=== PATIENT | female | born 2000 | race Caucasian/White ===

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

== ENCOUNTER 2021-09-13 02:38 | Outpatient (CLI) | payer OTHER, SELFPAY ==
[2021-09-13 11:34] LABS: Kit/Specimen SENT
[2021-09-13 11:47] LABS: Abs Immature Grans 0.06 10^3/uL (0.0-0.06); Absolute Basophil Count 0.06 10^3/uL (0.0-0.2); Absolute Eosinophil Count 0.08 10^3/uL (0.0-0.7); Absolute Lymphocyte Count 2.09 10^3/uL (1.2-3.4); Absolute Monocyte Count 0.62 10^3/uL (0.1-0.8); Basophils % 0.5; Eosinophils % 0.7; HCT 37.6 % (36.0-46.0); HGB 12.4 g/dL (11.2-15.7); Immature Grans % 0.5; Lymphocytes % 18.5; MCH 28.1 pg (27.0-33.0); MCV 85 fL (80-95); MPV 10.6 fL (8.0-11.0); Monocytes % 5.5; Neutrophils % 74.3; Platelet Count 252 10^3/uL (130-400); RBC 4.42 10^6/uL (3.93-5.22); RDW 12.1 % (11.7-14.6); RDW-SD 37.4 fL; WBC 11.31 10^3/uL (4.4-10.8)
[2021-09-14 09:49] LABS: Hepatitis C Ab w Rflx HCV PCR Negative (Negative)
[2021-09-14 10:43] LABS: Hepatitis B Surface Ag Negative (Negative)
[2021-09-14 10:58] LABS: Varicella IgG Antibody Negative (See Note)
[2021-09-14 11:03] LABS: Rubella IgG Ab (UVM) Positive (See Note)
[2021-09-14 11:56] LABS: HIV-1/2 Ag & Ab Screen Negative (Negative)
[2021-09-15 14:10] LABS: Syphilis IgG w/Reflex Nonreactive (Nonreactive)
[2021-09-19 04:10] LABS: Result Summary NEGATIVE; Specimen WB Whole Blood
[2021-09-19 04:42] LABS: Specimen WB Whole Blood
== END 2021-09-13 02:39 | disposition home or self-care (01) ==
LOC: LBO 02:40
PROVIDERS: Advanced Practice Midwife; PCP Nurse Practitioner Family; Visit Provider Advanced Practice Midwife
DX: Z34.91 Encounter for supervision of normal pregnancy, unspecified, first trimester (principal); Z3A.11 11 weeks gestation of pregnancy
CPT/HCPCS: 81329; 86787; 86803; 86850; 86900; 86901; 87340; 87389; 81220; 85025; 86762; 86780

== ENCOUNTER 2021-09-13 19:20 | Outpatient (REF) | payer OTHER, SELFPAY ==
[2021-09-13 12:58] LABS: *AMPHETAMINES SCREEN URINE Negative (Negative); *BARBITURATES SCREEN URINE Negative (Negative); *BENZODIAZEPINES SCREEN URINE Negative (Negative); Cannabinoids THC Negative (Negative); Cocaine Screen,Urine Negative (Negative); METHADONE URINE SCREEN Negative (Negative); OPIATES URINE SCREEN Negative (Negative)
[2021-09-13 13:15] LABS: Tricyclic Antidepressants Negative (Negative)
[2021-09-16 09:25] LABS: Buprenorphine Negative ng/mL (Cutoff: 5.0); Norbuprenorphine Negative ng/mL (Cutoff: 2.5)
[2021-09-16 16:36] LABS: Chlamydia Result Negative (Negative); GC Result Negative (Negative)
== END 2021-09-13 19:21 | disposition home or self-care (01) ==
LOC: LBN 19:20
PROVIDERS: PCP Nurse Practitioner Family; Visit Provider Advanced Practice Midwife
DX: Z34.91 Encounter for supervision of normal pregnancy, unspecified, first trimester (principal); Z3A.11 11 weeks gestation of pregnancy
CPT/HCPCS: 80307; 87491; 87591; 87086

== ENCOUNTER 2021-12-30 01:08 | Outpatient (CLI) | payer OTHER, SELFPAY ==
[2021-12-30 09:52] LABS: HCT 36.9 % (36.0-46.0); HGB 12.2 g/dL (11.2-15.7); MCH 29.9 pg (27.0-33.0); MCHC 33.1 % (32.0-36.0); MCV 90 fL (80-95); MPV 10.1 fL (8.0-11.0); Platelet Count 225 10^3/uL (130-400); RBC 4.08 10^6/uL (3.93-5.22); RDW 12.6 % (11.7-14.6); RDW-SD 41.2 fL; WBC 14.14 10^3/uL (4.4-10.8)
[2021-12-30 10:03] LABS: Glucose,1 Hr (Glucola) 136 mg/dL (80-140)
== END 2021-12-30 01:09 | disposition home or self-care (01) ==
LOC: LBO 01:08
PROVIDERS: Advanced Practice Midwife; PCP Nurse Practitioner Family; Visit Provider Obstetrics & Gynecology
DX: Z34.92 Encounter for supervision of normal pregnancy, unspecified, second trimester (principal); Z3A.26 26 weeks gestation of pregnancy
CPT/HCPCS: 36415; 82950; 85027

== ENCOUNTER → 2022-01-09 02:38 | Outpatient (CLI) | payer OTHER, SELFPAY ==
--- NOTE | 2022-01-09 08:15 | DI.US_ITS ---
Exam(s) US OB SHANE WEIGHT EXAM: US OB SHANE WEIGHT CLINICAL HISTORY: increased risk for trisomy 13, ABNL SCREENING, O28.9. TECHNIQUE: Transabdominal obstetrical ultrasound performed. COMPARISON: No exams were available for comparison FINDINGS: Transabdominal obstetrical ultrasound performed. FINDINGS: Number of fetuses: One. position: Cephalic. Placental location: There is a grade 1 fundal and posterior placenta. No evidence of previa. BIOMETRIC DATA: BPD: 71 mm = 28 weeks 4 days HC: 265 mm = 28 weeks 5 days AC: 245 mm = 28 weeks 6 days FL: 57 mm = 29 weeks 6 days EFW: 1337 grms 69% Composite Age: 29 weeks EDC: 03/27/2022 Heart Rate: 134BPM Amniotic fluid index: 12.3 cm. Visually, amount of fluid is within normal limits. IMPRESSION: 1. Single live intrauterine gestation as above. 2. Estimated weight is 1337gms. This is the 69th percentile. 3. Amniotic fluid index is 12.3 cm. Visually within normal limits. DATA REPOSITORY:
== END ==
PROVIDERS: PCP Nurse Practitioner Family; Visit Provider Obstetrics & Gynecology
DX: Z34.93 Encounter for supervision of normal pregnancy, unspecified, third trimester (principal)
CPT/HCPCS: 76816

== ENCOUNTER 2022-01-26 03:54 | Outpatient (CLI) | payer OTHER, SELFPAY ==
[2022-01-26 10:33] LABS: Glucose 1 Hour 118 mg/dL
[2022-01-26 12:20] LABS: Glucose 3 Hour 95 mg/dL
== END 2022-01-26 03:55 | disposition home or self-care (01) ==
LOC: LBO 03:55
PROVIDERS: PCP Nurse Practitioner Family; Visit Provider Obstetrics & Gynecology
DX: O28.9 Unspecified abnormal findings on antenatal screening of mother (principal)
CPT/HCPCS: 36415; 82951

== ENCOUNTER 2022-02-06 02:04 | Outpatient (CLI) | payer OTHER, SELFPAY ==
--- NOTE | 2022-02-06 07:30 | DI.US_ITS ---
Exam(s) US OB SAHNE WEIGHT EXAM: US OB SHANE WEIGHT CLINICAL HISTORY: increased risk for trisomy 13,abnl finidngs on screening,O28.9. TECHNIQUE: Transabdominal obstetrical ultrasound performed. COMPARISON: US US OB SHANE WEIGHT from 01/09/2022 FINDINGS:: Number of fetuses: One. position: Vertex. Placental location: Posterior. No evidence of previa. BIOMETRIC DATA: BPD: 79mm = 31+5 weeks HC: 295mm = 32+4 weeks AC: 282mm = 32+2 weeks FL: 63 mm = 32+5 weeks EFW: 1961 Gms = 42% Composite Age: 32+2 weeks EDC by ultrasound: 01 April 2022 Heart Rate: 131BPM Amniotic fluid index: 17 cm. Amount of fluid is visually within normal limits. IMPRESSION: size and weight are within the expected range. DATA REPOSITORY:
== END 2022-02-06 02:24 ==
PROVIDERS: PCP Nurse Practitioner Family; Visit Provider Obstetrics & Gynecology
DX: O28.9 Unspecified abnormal findings on antenatal screening of mother (principal)
CPT/HCPCS: 76816

== ENCOUNTER 2022-02-22 06:21 | Outpatient (CLI) | payer OTHER, SELFPAY ==
[2022-02-22 10:08] VITALS: BP 107/59; PULSE 70; TEMP 36.9
[2022-02-22 10:24] VITALS: BP 107/59; PULSE 70
--- NOTE | 2022-05-25 15:56 | W.OBNST ---
Date of service: 02/22/22 Time of Service: 11:00 NST Evaluation Reason for NST Reasons for Nonstress Test: OTHER, SEE COMMENT Reason for NST Other: well being Gestational Age Gestational Age in Weeks and Days: 38 Weeks and 2Days Test and Monitor Explained Test/Monitor Explained: Test Explained, Monitor Explained and Patient Verbalized Understanding Vital Signs Blood Pressure: 107/59 Pulse: 70 Temperature: 98.4 F NST Information Date on Monitor: 02/22/22 Time on Monitor: 10:11 NST Interventions: None NST Evaluation Patient States Movement: Present FHR Baseline: 130 Variability: Moderate 6-25 bpm Accelerations: 15x15 Decelerations: None NST Results: Reactive Note NST Note NST Reviewed and Verified by: Bridgette Bolton
[2022-05-25 15:57] VITALS: BP 107/59; PULSE 70; TEMP 36.9
== END 2022-02-22 11:15 | disposition home or self-care (01) ==
LOC: PRC 06:23 → BCD 06:27 → OBS 10:06
PROVIDERS: PCP Nurse Practitioner Family; Visit Provider Obstetrics & Gynecology Gynecology
DX: Z34.93 Encounter for supervision of normal pregnancy, unspecified, third trimester (principal)
CPT/HCPCS: 59025

== ENCOUNTER 2022-02-24 08:15 | Outpatient (CLI) | payer OTHER, SELFPAY ==
[2022-02-24 10:29] VITALS: BP 104/69; PULSE 72; TEMP 36.5
== END 2022-02-24 10:54 | disposition home or self-care (01) ==
LOC: BCD 08:20 → OBS 10:27
PROVIDERS: PCP Nurse Practitioner Family; Visit Provider Obstetrics & Gynecology Gynecology
DX: Z34.93 Encounter for supervision of normal pregnancy, unspecified, third trimester (principal)
CPT/HCPCS: 59025

== ENCOUNTER 2022-02-28 07:13 | Outpatient (CLI) | payer OTHER, SELFPAY ==
[2022-02-28 10:10] VITALS: BP 112/64; PULSE 68; TEMP 36.8
[2022-02-28 10:34] VITALS: BP 112/64; PULSE 68
--- NOTE | 2022-02-28 11:35 | W.OBNST ---
Date of service: 02/28/22 Time of Service: 11:35 NST Evaluation Reason for NST Reasons for Nonstress Test: OTHER, SEE COMMENT Reason for NST Other: well being Gestational Age Gestational Age in Weeks and Days: 35 Weeks and 3Days Test and Monitor Explained Test/Monitor Explained: Test Explained, Monitor Explained and Patient Verbalized Understanding Vital Signs Blood Pressure: 112/64 Pulse: 68 Temperature: 98.2 F NST Information Date on Monitor: 02/28/22 Time on Monitor: 10:08 NST Interventions: PO Hydration NST Evaluation Patient States Movement: Present FHR Baseline: 135 Variability: Moderate 6-25 bpm Accelerations: 15x15 Decelerations: None NST Results: Reactive Note NST Note Note: Reactive NST, category 1 strip. Follow-up as directed NST Reviewed and Verified by: Lynsey Rodriguez
[2022-02-28 11:36] VITALS: BP 112/64; PULSE 68; TEMP 36.8
--- NOTE | 2022-02-28 16:37 | W.OBNST ---
Date of service: 02/28/22 Time of Service: 14:00 NST Evaluation Reason for NST Reasons for Nonstress Test: OTHER, SEE COMMENT Reason for NST Other: well being Gestational Age Gestational Age in Weeks and Days: 35 Weeks and 3Days Test and Monitor Explained Test/Monitor Explained: Test Explained, Monitor Explained and Patient Verbalized Understanding Vital Signs Blood Pressure: 112/64 Pulse: 68 Temperature: 98.2 F NST Information Date on Monitor: 02/28/22 Time on Monitor: 10:08 NST Interventions: PO Hydration NST Evaluation Patient States Movement: Present FHR Baseline: 135 Variability: Moderate 6-25 bpm Accelerations: 15x15 Decelerations: None NST Results: Reactive Note NST Note NST Reviewed and Verified by: Dorys Cesar
[2022-02-28 16:38] VITALS: BP 112/64; PULSE 68; TEMP 36.8
== END 2022-02-28 11:25 | disposition home or self-care (01) ==
LOC: BCD 07:14 → OBS 10:08
PROVIDERS: PCP Nurse Practitioner Family; Visit Provider Obstetrics & Gynecology
DX: O26.893 Other specified pregnancy related conditions, third trimester (principal); Z3A.35 35 weeks gestation of pregnancy
CPT/HCPCS: 59025

== ENCOUNTER 2022-03-03 07:21 | Outpatient (CLI) | payer OTHER, SELFPAY ==
[2022-03-03 10:10] VITALS: BP 114/70; PULSE 74; TEMP 36.2
--- NOTE | 2022-03-03 11:20 | W.OBNST ---
Date of service: 03/03/22 Time of Service: 10:00 NST Evaluation Reason for NST Reasons for Nonstress Test: OTHER, SEE COMMENT Reason for NST Other: abnormal TS13 Gestational Age Gestational Age in Weeks and Days: 35 Weeks and 6Days Test and Monitor Explained Test/Monitor Explained: Test Explained, Monitor Explained and Patient Verbalized Understanding Vital Signs Blood Pressure: 114/70 Pulse: 74 Temperature: 97.2 F NST Information Date on Monitor: 03/03/22 Time on Monitor: 10:00 NST Interventions: PO Hydration NST Evaluation Patient States Movement: Present FHR Baseline: 130 Variability: Moderate 6-25 bpm Accelerations: 15x15 Decelerations: None NST Results: Reactive Note NST Note Note: RNST. No other concerns. Return next week for growth sono, then NST. NST Reviewed and Verified by: Dorys Cesar
[2022-03-03 11:21] VITALS: BP 114/70; PULSE 74; TEMP 36.2
== END 2022-03-03 10:35 | disposition home or self-care (01) ==
LOC: BCD 07:22 → OBS 10:24
PROVIDERS: PCP Nurse Practitioner Family; Visit Provider Obstetrics & Gynecology
DX: Z3A.35 35 weeks gestation of pregnancy; O35.11X0 Maternal care for (suspected) chromosomal abnormality in fetus, Trisomy 13, not applicable or unspecified
CPT/HCPCS: 59025

== ENCOUNTER → 2022-03-08 02:27 | Outpatient (CLI) | payer OTHER, SELFPAY ==
--- NOTE | 2022-03-08 07:30 | DI.US_ITS ---
Exam(s) US OB SHANE WEIGHT EXAM: US OB SHANE WEIGHT CLINICAL HISTORY: growth and SHANE,o28.9 TECHNIQUE: Ultrasound performed using standard protocol. COMPARISON: No exams were available for comparison FINDINGS: Ob ultrasound was performed utilizing 3rd trimester protocol. biometry is consistent with gest ational age of 35 weeks 4 days and EDC of April 08. The estimated weight is 2899 grams whic h is at the 46th percentile for predicted gestational age. Placenta is posterior with no evidence of placenta previa. There is visually a normal quantity of am niotic fluid and the SHANE is 11. heart rate is 142 BPM. Fetus is in cephalic presentation. Cervical length is 3.8 cm IMPRESSION: DATA REPOSITORY:
== END ==
PROVIDERS: PCP Nurse Practitioner Family; Visit Provider Obstetrics & Gynecology
DX: O28.9 Unspecified abnormal findings on antenatal screening of mother (principal)
CPT/HCPCS: 76816

== ENCOUNTER 2022-03-08 16:22 | Outpatient (REF) | payer OTHER, SELFPAY | END 2022-03-08 16:23 | disposition home or self-care (01) | LOC: LBN 16:22 | PROVIDERS: PCP Nurse Practitioner Family; Visit Provider Obstetrics & Gynecology Gynecology | DX: Z34.03 Encounter for supervision of normal first pregnancy, third trimester (principal) | CPT/HCPCS: 87081 ==

== ENCOUNTER 2022-03-10 09:37 | Outpatient (CLI) | payer OTHER, SELFPAY | END 2022-03-10 09:38 | disposition home or self-care (01) | LOC: BCD 03-21 09:37 | PROVIDERS: PCP Nurse Practitioner Family; Visit Provider Obstetrics & Gynecology | CPT/HCPCS: 59025 ==

== ENCOUNTER 2022-03-10 10:26 | Outpatient (CLI) | payer OTHER, SELFPAY ==
[2022-03-10 10:32] VITALS: BP 117/63; PULSE 74; TEMP 37
[2022-03-10 10:42] VITALS: BP 117/63; PULSE 74
[2022-03-10 11:15] VITALS: BP 117/63; PULSE 74; TEMP 37
--- NOTE | 2022-03-10 11:15 | W.OBNST ---
Date of service: 03/10/22 Time of Service: 11:15 NST Evaluation Reason for NST Reasons for Nonstress Test: OTHER, SEE COMMENT Reason for NST Other: well being Gestational Age Gestational Age in Weeks and Days: 36 Weeks and 6Days Test and Monitor Explained Test/Monitor Explained: Test Explained, Monitor Explained and Patient Verbalized Understanding Vital Signs Blood Pressure: 117/63 Pulse: 74 Temperature: 98.6 F NST Information Date on Monitor: 03/10/22 Time on Monitor: 10:10 Date off Monitor: 03/10/22 Time off Monitor: 10:48 Total Time on Monitor: 38 NST Interventions: PO Hydration NST Evaluation Patient States Movement: Present Variability: Moderate 6-25 bpm Accelerations: 15x15 Decelerations: None NST Results: Reactive Note NST Note Note: Category 1, reactive nonstress test NST Reviewed and Verified by: Lynsey Rodriguez
== END 2022-03-10 10:48 | disposition home or self-care (01) ==
LOC: BCD 10:28 → OBS 10:31
PROVIDERS: PCP Nurse Practitioner Family; Visit Provider Obstetrics & Gynecology
DX: Z34.93 Encounter for supervision of normal pregnancy, unspecified, third trimester (principal); Z3A.36 36 weeks gestation of pregnancy
CPT/HCPCS: 59025

== ENCOUNTER 2022-03-14 07:13 | Outpatient (CLI) | payer OTHER, SELFPAY ==
[2022-03-14 09:59] VITALS: BP 108/74; PULSE 71; TEMP 36.5
[2022-03-14 10:02] VITALS: BP 108/74; PULSE 71
--- NOTE | 2022-03-14 10:29 | W.OBNST ---
Date of service: 03/14/22 Time of Service: 10:29 NST Evaluation Reason for NST Reasons for Nonstress Test: OTHER, SEE COMMENT Reason for NST Other: well being Gestational Age Gestational Age in Weeks and Days: 37 Weeks and 3Days Test and Monitor Explained Test/Monitor Explained: Test Explained and Monitor Explained Vital Signs Blood Pressure: 108/74 Pulse: 71 Temperature: 97.7 F NST Information Date on Monitor: 03/14/22 Time on Monitor: 09:57 Date off Monitor: 03/14/22 Time off Monitor: : Total Time on Monitor: 25 NST Interventions: PO Hydration Contraction Frequency: 2 contractions in 20 min 3 min apart NST Evaluation Patient States Movement: Present FHR Baseline: 135 Variability: Moderate 6-25 bpm Accelerations: 15x15 Decelerations: None NST Results: Reactive Note NST Note Note: Reactive NST, category 1 strip. Occasional uterine contractions. Follow-up as scheduled NST Reviewed and Verified by: Lynsey Rodriguez
[2022-03-14 10:30] VITALS: BP 108/74; PULSE 71; TEMP 36.5
== END 2022-03-14 10:24 | disposition home or self-care (01) ==
LOC: BCD 07:25 → OBS 09:57
PROVIDERS: PCP Nurse Practitioner Family; Visit Provider Obstetrics & Gynecology Gynecology
DX: O26.893 Other specified pregnancy related conditions, third trimester (principal); Z3A.37 37 weeks gestation of pregnancy
CPT/HCPCS: 59025

== ENCOUNTER 2022-03-17 06:06 | Outpatient (CLI) | payer OTHER, SELFPAY ==
[2022-03-17 10:07] VITALS: BP 106/66; TEMP 36.9
[2022-03-17 10:14] VITALS: BP 106/66; PULSE 84
[2022-03-17 10:29] VITALS: BP 106/66; PULSE 84; TEMP 36.9
--- NOTE | 2022-03-19 12:17 | W.OBNST ---
Date of service: 03/19/22 Time of Service: 12:17 NST Evaluation Reason for NST Reasons for Nonstress Test: OTHER, SEE COMMENT Reason for NST Other: elevated Trisomy 13 Gestational Age Gestational Age in Weeks and Days: 37 Weeks and 6Days Test and Monitor Explained Test/Monitor Explained: Test Explained, Monitor Explained and Patient Verbalized Understanding Vital Signs Blood Pressure: 106/66 Pulse: 84 Temperature: 98.4 F Urine Results Urine Protein: Negative Urine Ketones: Negative Urine Glucose: Negative Urine Blood: Negative NST Information Date on Monitor: 03/17/22 Time on Monitor: 10: Date off Monitor: 03/17/22 Time off Monitor: : Total Time on Monitor: 20 NST Interventions: PO Hydration Contraction Frequency: Q8 NST Evaluation Patient States Movement: Present FHR Baseline: 125 Variability: Moderate 6-25 bpm Accelerations: 15x15 Decelerations: None NST Results: Reactive Note NST Note Note: Discussed IOL after 39w with pt and partner. Plan on admission for cervical ripening 03/27/22 and Oxytocin augmentation on 03/28/22. NST Reviewed and Verified by: Bridgette Bolton
[2022-03-19 12:18] VITALS: BP 106/66; PULSE 84; TEMP 36.9
== END 2022-03-17 11:04 | disposition home or self-care (01) ==
LOC: BCD 06:08 → OBS 09:53
PROVIDERS: PCP Nurse Practitioner Family; Visit Provider Advanced Practice Midwife
DX: O35.11X0 Maternal care for (suspected) chromosomal abnormality in fetus, Trisomy 13, not applicable or unspecified (principal); Z3A.37 37 weeks gestation of pregnancy
CPT/HCPCS: 59025

== ENCOUNTER 2022-03-19 22:37 | Outpatient (CLI) | payer OTHER, SELFPAY ==
[2022-03-19 23:23] VITALS: BP 116/80; PULSE 80; TEMP 36.9
[2022-05-25 16:03] VITALS: BP 116/80; PULSE 80; TEMP 36.9
--- NOTE | 2022-05-25 16:03 | W.OBNST ---
Date of service: 03/19/22 Time of Service: 14:34 NST Evaluation Reason for NST Reasons for Nonstress Test: FALSE LABOR Gestational Age Gestational Age in Weeks and Days: 38 Weeks and 2Days Test and Monitor Explained Test/Monitor Explained: Test Explained, Monitor Explained and Patient Verbalized Understanding Vital Signs Blood Pressure: 116/80 Pulse: 80 Temperature: 98.4 F NST Information Time on Monitor: 22:47 Date off Monitor: 03/20/22 Time off Monitor: 00:00 NST Interventions: None NST Evaluation Patient States Movement: Present FHR Baseline: 130 Variability: Moderate 6-25 bpm Accelerations: 15x15 Decelerations: None NST Results: Reactive
== END 2022-03-19 23:59 | disposition home or self-care (01) ==
LOC: BCD 22:38
PROVIDERS: PCP Nurse Practitioner Family; Visit Provider Obstetrics & Gynecology Gynecology
DX: Z34.93 Encounter for supervision of normal pregnancy, unspecified, third trimester (principal)
CPT/HCPCS: 59025

== ENCOUNTER 2022-03-20 21:51 | Inpatient (IN) | payer OTHER, SELFPAY ==
[2022-03-20] VITALS (9 sets, daily range): BP systolic 124–129; BP diastolic 85; PULSE 67–95; RESP 19–25; TEMP 20–37.1; O2SAT 95–96
--- NOTE | 2022-03-20 18:36 | NUR.NOTE ---
RN unable to chart on NST worklist due to Ahonya stating provider is still in screen, provider en route to home and not near computer. FHR Baseline 120, moderate variability, 15X15 accelerations present, no decelerations, contractions every 3-5min lasting 70-100 seconds, resting tone relaxed in between contractions. Intensity of contractions palpating mild/moderate Nursing Note:
--- NOTE | 2022-03-20 19:55 | NUR.NOTE ---
Plan of care reviewed with patient. Karen appears more comfortable after her shower/water therapy. Pt states she feels much better now and wonders why our shower gave her much more relief than her home shower. Pt was transferred to room 300 for tub room access. Karen is currently rocking on the birthing ball with her contractions. We plan to hold the morphine until her contractions are unbearable. She appears in much more control of her labor currently.Nursing Note:
[2022-03-20] MEDS: MORPHine 2 MG/ML SYR IM (22:17)
[2022-03-20] MEDS: Ondansetron 4 MG/2 ML VIAL IM (22:18)
[2022-03-20 22:19] LABS: HCT 41.4 % (36.0-46.0); HGB 13.8 g/dL (11.2-15.7); MCH 29.6 pg (27.0-33.0); MCHC 33.3 % (32.0-36.0); MCV 89 fL (80-95); MPV 11.4 fL (8.0-11.0); Platelet Count 200 10^3/uL (130-400); RBC 4.67 10^6/uL (3.93-5.22); RDW 11.4 % (11.7-14.6); RDW-SD 36.6 fL; WBC 16.58 10^3/uL (4.4-10.8)
--- NOTE | 2022-03-20 23:50 | NUR.NOTE ---
sitting in tub with Nitrous available. Occ crying out during contraction. Considering returning to shower with birthing ball. Appears to be coping Ok in the tub. Hsb supportiveNursing Note:
[2022-03-21] VITALS (96 sets, daily range): BP systolic 93–137; BP diastolic 51–85; PULSE 55–114; RESP 15–18; TEMP 20–37.3; O2SAT 87–100; BMI 33.6
--- NOTE | 2022-03-21 00:02 | NUR.NOTE ---
Out of tub, and to shower after voiding.Nursing Note:
--- NOTE | 2022-03-21 00:31 | NUR.NOTE ---
Karen in fbi profiler on shower chair listening to her music. Coping well with most of the contractions. Feels shower is better at this time.Nursing Note:
[2022-03-21] MEDS: Lactated Ringers 500 ML IV (02:27)
--- NOTE | 2022-03-21 02:29 | HPE_ITS ---
Date of service: 03/21/22 Time of Service: 02:30 Assessment and Plan Assessment and plan (1) : Status: Acute Assessment and plan: Spontaneous labor with routine care. Desires epidural. Anesthesia aware. OB-HPI Labor/Delivery History of Present Illness Reason for Visit: Labor Chief Complaint: Uterine Contractions. DEANGELO Calculator Estimated Delivery Date Method Current WG Current Estimate 04/01/22 LMP (Certain) 38w 3d Other Estimates 03/30/22 Ultrasound #1 38w 5d History of Present Expected Delivery Route/Plan - MDs FOB/ - Brock (first baby together). Varicella non-immune, offer vaccination Specific Issues/Plan 1. Panorama HR trisomy 13. 68% risk.. CF/SMA negative - [facility] level 2 sono at 20wks wnl = significant reduction in risk for T13 - Recommend growth u/s at [facility] at 28, 32 and 36wks. Begin NSTs at 34w 2. Varicella Non-Immune, counseled pt, offer vaccine 3. Received covid vaccine x 2, no booster. Narrative: Pt has had intermittent contractions for over 24hrs. She came in last evening with more regular ctxs and has slowly progress in labor. No ROM. Good FM. Review of Systems Constitutional Constitutional: Reports system reviewed and no additional complaints, except as documented Gastrointestinal Gastrointestinal: Denies nausea and Denies vomiting Genitourinary Genitourinary: Reports system reviewed and no additional complaints, except as documented Musculoskeletal Comments: No regular contractions PFSH All Active Problems (Acute) Susceptible to varicella (non-immune), currently (Acute) Abnormal finding on screening of mother (Acute) Medical History Missed menses Surgical History [place] teeth extracted Family History (Updated 09/13/21 @ 10:29 by Yakelin Gonzales CNM) Paternal Grandfather Heart disease Mother Hx of cardiac arrhythmia Social History Smoking/Tobacco Use Status: Never Smoking risk assessment performed?: Yes Alcohol Intake: never Drug use: Never Substance use type: does not use Do you feel safe at home: Yes Do you feel safe in your relationship?: Yes History History 1 Para 0 Hx # Term Pregnancies 0 Multiple births 0 Hx # Pregnancies 0 Ectopic pregnancies 0 AB induced 0 Hx Number of Living Children 0 AB spontaneous 0 Meds Allergies and Home Medications Allergies Allergy/AdvReac Type Severity Reaction Status Date / Time No Known Allergies Allergy Unverified 03/08/22 13:00 Home Medications Medication Instructions Recorded Confirmed Type vitamins with calcium 1 tab PO DAILY #90 tabs 08/12/21 03/19/22 Rx no.72-iron 29 mg-folic acid 1 mg tablet ( Plus) pyridoxine (vitamin B6) 25 mg 25 mg PO DAILY 09/13/21 03/19/22 History tablet ondansetron HCl 8 mg tablet 8 mg PO Q8H PRN nausea and 10/11/21 03/19/22 Rx vomiting #14 tabs Exam Physical Exam Vital signs: Temp Pulse Resp BP Pulse Ox 98.8 F 65 17 129/85 96 03/21/22 01:17 03/21/22 02:26 03/21/22 01:17 03/20/22 22:24 03/21/22 02:26 Vital Signs Reviewed: Yes Detailed Labor and Delivery Exam Dilation: 5 (by RN) Effacement (%): 85 station: -1 Bowser Score: Cervical Points Exam 0 1 2 3 Dilation Closed 1-2cm 3-4 cm 5-6cm Effacement 0-30% 40-50% 60-70% 80% Consistency Firm Medium Soft Station -3 -2 -1,0 +1,+2 Position Posterior Mid Anterior Amniotic Membrane Status: Intact Fetus A Heart Rate Baseline: 120 Monitor Accelerations: 15 X 15 Monitor Decelerations: None Variability: Moderate (6-25 BPM) Categories: Category I Detailed HEENT Exam Head: Present normocephalic and atraumatic Detailed Abdominal Exam Comments: gravid, nontender Detailed Neurological Exam Neurological: Present alert, oriented X3 and CN II-XII intact DetailedPsychiatric Exam Psychiatric: Present normal affect, normal thought process and cooperative Results Abnormal Lab Findings: Abnormal Labs 03/20/22 22:08 WBC 16.58 H RDW 11.4 L MPV 11.4 H Risk Assessment Risk for Shoulder Dystocia Historical/Initial OB: NEGATIVE FOR: Pelvic Abnormality, Pre- BMI>30, Previous Shoulder Dystocia or Previous Macrosomia Risk for Pre-Eclampsia Yes, if one or more: NEGATIVE FOR: Hx Pre-E/Gest HTN, Chronic HTN, Multiple Gestation, Pre-gestational DM, Renal Disease, Systemic Lupus or APA Syndrome Yes, if 2 or more: POSITIVE FOR: Nulliparity; NEGATIVE FOR: Age>= 35 yrs, >10yr btwn pregnancies, BMI>30, ethinicty, Mother/Sister w/ Pre-E or Previous IUGR Risk for Post- Hemorrhage Initial: NEGATIVE FOR: Multiple Gestation, Previous PPH, Known Clotting Deficiency, Grand Multiparity or Anticoagulation Risks Reviewed Risks Reviewed Upon Admission: Yes
--- NOTE | 2022-03-21 02:53 | W.OBNST ---
Date of service: 03/20/22 Time of Service: 19:00 NST Evaluation Reason for NST Reasons for Nonstress Test: FALSE LABOR Gestational Age Gestational Age in Weeks and Days: 38 Weeks and 2Days Test and Monitor Explained Test/Monitor Explained: Test Explained, Monitor Explained, Patient Verbalized Understanding and Other Vital Signs Blood Pressure: 124/85 Pulse: 95 Temperature: 68 F NST Information Date on Monitor: 03/20/22 Time on Monitor: 17:45 Date off Monitor: 03/20/22 Time off Monitor: 18:08 Total Time on Monitor: 23 NST Interventions: None NST Evaluation Patient States Movement: Present FHR Baseline: 125 Variability: Moderate 6-25 bpm Accelerations: 15x15 Decelerations: None NST Results: Reactive Note NST Note NST Reviewed and Verified by: Dorys Cesar
[2022-03-21 02:58] LABS: Source Nasal/Nares
--- NOTE | 2022-03-21 03:08 | W.ANESPRE ---
General Info Date of Service Date Performed: 03/21/22 Height: 5 ft 3 in Weight: 86.183 kg Body Mass Index (BMI): 33.6 Meds Allergies and Home Medications Allergies Allergy/AdvReac Type Severity Reaction Status Date / Time No Known Allergies Allergy Unverified 03/08/22 13:00 Home Medication Medication Instructions Recorded vitamins with calcium 1 tab PO DAILY #90 tabs 08/12/21 no.72-iron 29 mg-folic acid 1 mg tablet ( Plus) pyridoxine (vitamin B6) 25 mg 25 mg PO DAILY 09/13/21 tablet ondansetron HCl 8 mg tablet 8 mg PO Q8H PRN nausea and 10/11/21 vomiting #14 tabs Current Visit Medications: Current Medications Generic Name Dose Route Start Last Admin Trade Name Freq PRN Reason Stop Dose Admin Sodium Chloride 500 mls @ 0 mls/hr 03/20/22 21:51 Saline 500ml Bag IV PRN PRN As Directed Ringer's Solution 1,000 mls @ 125 mls/hr 03/21/22 02:00 IV INFUSION NATHANAEL IV Miscellaneous Supplies 1 each 03/20/22 22:00 03/21/22 02:26 Iv Access IV 1 each DIRECTED NATHANAEL Administration Morphine Sulfate 2 mg 03/20/22 17:59 03/20/22 22:17 Morphine 2 Mg/Ml Syr IM 2 mg Q2H PRN PRN Administration Ondansetron HCl 4 mg 03/20/22 19:29 03/20/22 22:18 Ondansetron 4 Mg/2 Ml Vial IM 4 mg Q6H PRN PRN Administration Nausea Sodium Chloride 0 ml 03/20/22 21:51 Normal Saline Flush 10 Ml Syr IVP PRN PRN PFSH Active Problems Active Problems: Problem Status Onset Code Z34.90 Susceptible to varicella (non-immune), currently O09.899, Z28.39 Abnormal finding on screening of mother O28.9 Medical History Medical History Missed menses Surgical History Surgical History [place] teeth extracted Tobacco Smoking/Tobacco Use Status: Never Alcohol Alcohol Intake: never Substance Use Substance use: Never Substance use type: does not use Prental History History 1 Para 0 Hx # Term Pregnancies 0 Multiple births 0 Hx # Pregnancies 0 Ectopic pregnancies 0 AB induced 0 Hx Number of Living Children 0 AB spontaneous 0 Vital Signs and Lab Results Vital Signs Most Recent Vital Signs in EMR: Most Recent Vital Signs Temp Pulse Resp BP Pulse Ox 37.2 C 71 17 129/85 96 03/21/22 02:29 03/21/22 03:06 03/21/22 01:17 03/20/22 22:24 03/21/22 03:06 Lab Results Result Diagrams: 03/20/22 22:08 Blood Type / Crossmatch: Patient ABO/Rh O Positive 03/20/22 Antibody Screen NEGATIVE 03/20/22 Complete Blood Count: White Blood Count 16.58 10^3/uL (4.4-10.8) H 03/20/22 22:08 Red Blood Count 4.67 10^6/uL (3.93-5.22) 03/20/22 22:08 Hemoglobin 13.8 g/dL (11.2-15.7) 03/20/22 22:08 Hematocrit 41.4 % (36.0-46.0) 03/20/22 22:08 Platelet Count 200 10^3/uL (130-400) 03/20/22 22:08 Complete Metabolic Panel: No Data to Display Liver Function Panel: No Data to Display Coagulation Panel: No Data to Display Cardiac Panel: No Data to Display Arterial Blood Gas: No Data to Display Venous Blood Gas: No Data to Display Pancreas Panel: No Data to Display Thyroid Panel: No Data to Display Infectious Disease: Coronavirus (COVID-19)(PCR) Negative (Negative) 03/21/22 02:55 Coronavirus 2019 Source Nasal/Nares 03/21/22 02:55 Blood Cultures: No Data to Display Toxicology Panel: No Data to Display Panel: No Data to Display Anesthesia Assessment and Plan Anesthesia History Personal History: No History of Anesthesia Complications Family History: No Family History of Anesthesia Complications Exercise Tolerance Exercise Tolerance: Metabolic Equivalents>4 Pertinent Negatives Pertinent Negatives: No Major Cardiovascular Symptoms or Complaints and No Major Pulmonary Symptoms or Complaints Cardiac & Pulmonary Exam Cardiac Exam: Normal S1/S2 Heart Sounds Pulmonary Exam: Clear Bilateral Breath Sounds Implantable Cardiac Device Does patient have a Pacemaker or an ICD?: No Airway Exam Known Difficult Airway: No Mallampati Class: 1 Mouth Opening: Normal (> 3cm) Thyromental Distance: Greater than 3 cm Neck Range of Motion: Full ROM Neck Circumference: Normal Teeth Condition: Normal Dentition ASA Classification ASA Score: ASA 1 Emergency Case?: No NPO Status NPO Status: Full Stomach Status Status: Confirmed Anesthesia Plan Resuscitation Status: Full Code Anesthesia Technique: Spinal Anesthesia Airway Planned: Natural Airway Monitors Used: Standard Monitors Preoperative Comments:: Labor epidural
[2022-03-21 03:28] LABS: COVID-19 PCR Negative (Negative)
--- NOTE | 2022-03-21 03:56 | ANES.NEUR_ITS ---
Epidural/Spinal Catheter Date Performed: 03/21/22 Procedure Start: 03:30 Procedure Stop: 04:11 Requesting Provider: Dorys Cesar Procedure Location: Obstetrics Reason Performed: Labor Epidural Standard Monitors Applied: Blood Pressure, SpO2 and See EMR for corresponding vital signs Patient Position: Sitting Sedation Given (Indicate Dose Given): No Sedation given Patient Mental Status: Awake Sterility: Hand Hygiene, Surgical Cap, Surgical Mask, Sterile Gloves, Sterile Drape/Sheet and Chlorhexidine Procedure Location: L2-L3 Interspace Epidural Needle: Tuohy 18 Gauge Needle Length: 3.5 Inch Needle Approach: Midline Epidural Procedure: Skin Prepped, Sterile Drape Placed, 1% Lidocaine to skin and subcutaneous tissue with 25G needle, Tuohy Needle placed, EDELMIRA to Saline Used, Epidural Catheter Placed, Negative CSF Flow and Tuohy Needle Removed Catheter Placed?: Catheter Placed Test Dose (Indicate Dose Given): 3ml 1.5% Lidocaine with 1:200K Epinephrine Given and Negative Test Dose Loss of Resistance Depth (cm): 6 Catheter depth at skin (cm): 12 Dressing: Sorbaview Dressing Placed and Dressing reinforced with Tape Epidural Provider Bolus (Indicate Dose Given): Total bolus dose given in 3-5 ml divided doses and Total Ropivacaine 0.1% with Fentanyl 2mcg/ml Given from pump. (ml) Dose:: 5 ml Additives (Indicate Dose Given ): None Infusion Medication: Medication Infusion Began Medication Infusion: Ropivacaine 0.1% with Fentanyl 2mcg/ml Maintenance Infusion Rate (ml/hour): 10 PCEA Bolus Dose (ml): 5 Block Level: N/A Paresthesia: None Ultrasound: Not Used Number of Attempts (See previous attempts in note section): 1 Procedure Tolerated: No Complications and Patient tolerated well Procedure Outcome: Successful Procedure Comment:: Negative test dose at 0347. Catheter placed and withdrew to 12cm. Initially appreciated some heme in catheter but not constant on withdrawal. Catheter flushed and heme not reproducible. Catheter dressed and infusion began. IV noted to be infiltrated and new one placed. Bolus 5ml from pump with complete relief of contraction discomfort. Legs motor strength 5/5, had some initial right foot tingling only which resolved when she turned on her side. Pt. states no dis comfort now. RN will monitor for epidural vs intrathecal placement given how much relief in short amount fo time with a small dose of medication, however given motor/sensory exam as well as negative test dose, all is reassuring that placement is in epidural space. Pt. educated on PCEA use. Performed By: Efrain Salazar
[2022-03-21] MEDS: FentaNYL/ROPIvacaine 2 mcg/ml and 0.1% 200 ML CADD Cassette EP (04:11)
--- NOTE | 2022-03-21 06:14 | PGE_ITS ---
Date of service: 03/21/22 Time of Service: 06:14 Pelvic Exam Dilation: 6 Effacement (%): 90 station: -1 Vaginal Exam Presentation: Cephalic Contractions Monitor Mode: External Fetus A Heart Rate Baseline: 130 Variability: Moderate (6-25 BPM) Categories: Category I Accelerations: 15 X 15 Decelerations: None Amniotic Membrane Status: Ruptured Rupture Method: Artifical Amniotic Fluid: Clear and [place] Tinged Date of Membrane Rupture: 03/21/22 Time of Membrane Rupture: 06:10 Assessment and Plan Assessment and plan (1) with 38 completed weeks gestation: Status: Acute Assessment and plan: Continue expectant management. Recheck in several hours. Consider pitocin augmentation if minimal cervical change. Objective Abnormal lab results 03/20/22 Range/Units 22:08 WBC 16.58 H (4.4-10.8) 10^3/uL RDW 11.4 L (11.7-14.6) % MPV 11.4 H (8.0-11.0) fL Temp Pulse Resp BP Pulse Ox 99.0 F 65 15 93/55 L 100 03/21/22 02:29 03/21/22 06:12 03/21/22 04:44 03/21/22 06:12 03/21/22 03:46 Laboratory Results WBC 16.58 10^3/uL (4.4-10.8) H 03/20/22 22:08 RBC 4.67 10^6/uL (3.93-5.22) 03/20/22 22:08 Hgb 13.8 g/dL (11.2-15.7) 03/20/22 22:08 Hct 41.4 % (36.0-46.0) 03/20/22 22:08 MCV 89 fL (80-95) 03/20/22 22:08 MCH 29.6 pg (27.0-33.0) 03/20/22 22:08 MCHC 33.3 % (32.0-36.0) 03/20/22 22:08 RDW 11.4 % (11.7-14.6) L 03/20/22 22:08 Plt Count 200 10^3/uL (130-400) 03/20/22 22:08 MPV 11.4 fL (8.0-11.0) H 03/20/22 22:08 COVID-19 Source Nasal/Nares 03/21/22 02:55 SARS-CoV-2 (PCR) Negative (Negative) 03/21/22 02:55 Patient ABO/Rh O Positive 03/20/22 22:08 Antibody Screen NEGATIVE 03/20/22 22:08 Subjective Interval history since last seen: Karen is now comfortable with an epidural and got a good nap. Ctx q4-5min. Results Hemoglobin/Hematocrit: Hgb 13.8 g/dL (11.2-15.7) 03/20/22 22:08 Hct 41.4 % (36.0-46.0) 03/20/22 22:08 Abnormal Lab Findings: Abnormal Labs 03/20/22 22:08 WBC 16.58 H RDW 11.4 L MPV 11.4 H
[2022-03-21] MEDS: Lactated Ringers 1,000 ML 125 ML IV (07:00)
--- NOTE | 2022-03-21 08:49 | W.PM.OBNL1 ---
Date of service: 03/21/22 Time of Service: 08:49 Pelvic Exam Dilation: 6 Effacement (%): 100 station: 0 Position: OA Cervix Position: mid Vaginal Exam Presentation: Cephalic Contractions Monitor Mode: External Contraction Frequency(min): q2-3min Contraction Duration(sec): 50 Intensity: Moderate Fetus A Monitor: External (US) Heart Rate Baseline: 130 Presentation: Cephalic Variability: Moderate (6-25 BPM) Categories: Category I FHR Rhythm: Regular Characteristics: Normal Accelerations: 15 X 15 Decelerations: None Amniotic Membrane Status: Ruptured Assessment Note: significant descent of presenting part Assessment and Plan Assessment and plan (1) Uterine contractions: Status: Acute Assessment and plan: Pt comfortable with epidural. Continue present management. Objective Abnormal lab results 03/20/22 Range/Units 22:08 WBC 16.58 H (4.4-10.8) 10^3/uL RDW 11.4 L (11.7-14.6) % MPV 11.4 H (8.0-11.0) fL Temp Pulse Resp BP Pulse Ox 98.3 F 89 17 111/65 97 03/21/22 07:28 03/21/22 08:41 03/21/22 07:38 03/21/22 08:41 03/21/22 08:24 Laboratory Results WBC 16.58 10^3/uL (4.4-10.8) H 03/20/22 22:08 RBC 4.67 10^6/uL (3.93-5.22) 03/20/22 22:08 Hgb 13.8 g/dL (11.2-15.7) 03/20/22 22:08 Hct 41.4 % (36.0-46.0) 03/20/22 22:08 MCV 89 fL (80-95) 03/20/22 22:08 MCH 29.6 pg (27.0-33.0) 03/20/22 22:08 MCHC 33.3 % (32.0-36.0) 03/20/22 22:08 RDW 11.4 % (11.7-14.6) L 03/20/22 22:08 Plt Count 200 10^3/uL (130-400) 03/20/22 22:08 MPV 11.4 fL (8.0-11.0) H 03/20/22 22:08 COVID-19 Source Nasal/Nares 03/21/22 02:55 SARS-CoV-2 (PCR) Negative (Negative) 03/21/22 02:55 Patient ABO/Rh O Positive 03/20/22 22:08 Antibody Screen NEGATIVE 03/20/22 22:08 Vital Signs Reviewed: Yes Objective Narrative Objective Narrative: comfortable with epidural in place. Interventions Other (none) Results Hemoglobin/Hematocrit: Hgb 13.8 g/dL (11.2-15.7) 03/20/22 22:08 Hct 41.4 % (36.0-46.0) 03/20/22 22:08 Abnormal Lab Findings: Abnormal Labs 03/20/22 22:08 WBC 16.58 H RDW 11.4 L MPV 11.4 H
--- NOTE | 2022-03-21 10:26 | W.PM.OBNL1 ---
Date of service: 03/21/22 Time of Service: 10:26 Pelvic Exam Dilation: 8 Effacement (%): 100 station: 0 Position: OA Cervix Position: mid Comments: Exam by RN. Pt feeling more rectal pressure. Continues comfortable with epidural in place. Contractions Monitor Mode: External Contraction Frequency(min): q2-3 Contraction Duration(sec): 50 Intensity: Moderate Fetus A Monitor: External (US) Heart Rate Baseline: 125 Presentation: Cephalic Variability: Moderate (6-25 BPM) Categories: Category I FHR Rhythm: Regular Characteristics: Normal Accelerations: 15 X 15 Decelerations: None Assessment and Plan Assessment and plan (1) Uterine contractions: Status: Acute Assessment and plan: Satisfactory labor progress. Continue current management. Objective Abnormal lab results 03/20/22 Range/Units 22:08 WBC 16.58 H (4.4-10.8) 10^3/uL RDW 11.4 L (11.7-14.6) % MPV 11.4 H (8.0-11.0) fL Temp Pulse Resp BP Pulse Ox 97.5 F L 83 17 118/70 96 03/21/22 09:42 03/21/22 10:11 03/21/22 09:42 03/21/22 10:11 03/21/22 08:35 Laboratory Results WBC 16.58 10^3/uL (4.4-10.8) H 03/20/22 22:08 RBC 4.67 10^6/uL (3.93-5.22) 03/20/22 22:08 Hgb 13.8 g/dL (11.2-15.7) 03/20/22 22:08 Hct 41.4 % (36.0-46.0) 03/20/22 22:08 MCV 89 fL (80-95) 03/20/22 22:08 MCH 29.6 pg (27.0-33.0) 03/20/22 22:08 MCHC 33.3 % (32.0-36.0) 03/20/22 22:08 RDW 11.4 % (11.7-14.6) L 03/20/22 22:08 Plt Count 200 10^3/uL (130-400) 03/20/22 22:08 MPV 11.4 fL (8.0-11.0) H 03/20/22 22:08 COVID-19 Source Nasal/Nares 03/21/22 02:55 SARS-CoV-2 (PCR) Negative (Negative) 03/21/22 02:55 Patient ABO/Rh O Positive 03/20/22 22:08 Antibody Screen NEGATIVE 03/20/22 22:08 Results Hemoglobin/Hematocrit: Hgb 13.8 g/dL (11.2-15.7) 03/20/22 22:08 Hct 41.4 % (36.0-46.0) 03/20/22 22:08 Abnormal Lab Findings: Abnormal Labs 03/20/22 22:08 WBC 16.58 H RDW 11.4 L MPV 11.4 H
[2022-03-21] MEDS: Oxytocin 10 UNITS/ML VIAL IM (12:15)
[2022-03-21] MEDS: Lidocaine 1% Multi-Dose 20 ML VIAL IJ (12:15)
--- NOTE | 2022-03-21 14:50 | W.ANESPOSTOP ---
Postoperative Evaluation Date, Time and Location Date Performed: 03/21/22 Time Performed: 14:51 Patient Location: Day Surgery Unit Vital Signs Most Recent Imported Vital Signs: Most Recent Vital Signs Temp Pulse Resp BP Pulse Ox 36.4 C L 67 17 106/55 L 96 03/21/22 09:42 03/21/22 13:56 03/21/22 09:42 03/21/22 13:56 03/21/22 08:35 Pain Score Most Recent Pain Score: Most Recent Pain Score Pain Level [Lower Abdomen] 0 03/21/22 09:42 Pain Level 6 03/20/22 23:17 Assessment Mental Status: Awake (Alert & Oriented to Patient Baseline) Airway and Respiratory Function: Patent airway with normal (patient baseline) respiratory exam Cardiovascular Function: Hemodynamically Stable Hydration Status: Adequately Hydrated Nausea & Vomiting: No Nausea or Vomiting Pain: Pt. Denies Any Pain Peripheral Nerve Block: Other (Epidural appropriately resolved, denied complaint, denied headache, denied backpain. Per RN catheter removed with tip intact.)
[2022-03-21] MEDS: Ibuprofen 600 MG TAB PO (16:13)
[2022-03-21] MEDS: Docusate Sodium 100 MG CAP PO (16:13)
[2022-03-21] MEDS: Hamamelis Leaf/Glycerin 100 EACH BOX PR (16:13)
[2022-03-21] MEDS: Dibucaine 1% 28 GM TUBE TP (16:13)
[2022-03-21] MEDS: Acetaminophen 325 MG TAB 650 MG PO ×2 (16:14→21:06)
--- NOTE | 2022-03-21 19:27 | NUR.NOTE ---
Patient asleep. Hsb requesting to have vitals and assessment occur in an hour.Nursing Note:
[2022-03-22] MEDS: Ibuprofen 600 MG TAB PO ×2 (01:29→10:36)
--- NOTE | 2022-03-22 07:43 | W.PM.OBPNV1 ---
Date of service: 03/22/22 Time of Service: 07:43 Assessment and Plan Assessment and plan (1) Normal spontaneous vaginal delivery: Status: Acute Assessment and plan: day #1 status postnormal spontaneous vaginal delivery. Doing well. Anticipate discharge home later today, or tomorrow. Continue breast-feeding. Routine follow-up in 2 and 6 weeks. Subjective Subjective Interval history: Patient seen and examined this morning. Doing well. Breast-feeding is coming along appropriately. Sleeping well. Patient's Mood: Good baby status: Doing well and Nursing well feeding status: Exclusively breast feeding Exam Physical Exam Vital signs: Temp Pulse Resp BP Pulse Ox 98.2 F 74 17 114/74 96 03/21/22 20:10 03/21/22 20:10 03/21/22 20:10 03/21/22 20:10 03/21/22 08:35 Vital Signs Reviewed: Yes Constitutional Constitutional: no acute distress Neck Exam Neck Exam: Normal Respiratory Exam Respiratory Exam: Normal Cardiovascular Exam Cardiovascular Exam: Normal Abdominal Exam Abdomen: Diastasis Fundal Exam Fundus: Below Umbilicus and Firm Extremities Exam Extremity Exam: Normal; negative Calf Tenderness Psychiatric Exam Psychiatric Exam: Normal Results Hemoglobin/Hematocrit: Hgb 13.8 g/dL (11.2-15.7) 03/20/22 22:08 Hct 41.4 % (36.0-46.0) 03/20/22 22:08 Abnormal Lab Findings: Abnormal Labs 03/20/22 22:08 WBC 16.58 H RDW 11.4 L MPV 11.4 H
--- NOTE | 2022-03-22 07:49 | DSE_ITS ---
Date of service: 03/22/22 Time of Service: 07:50 DS: Diagnosis Discharge Diagnosis (1) Normal spontaneous vaginal delivery: Status: Acute Asessment and Plan: day 1 status postnormal spontaneous vaginal delivery viable female Natalie. Breast-feeding without difficulty. Follow-up in the office in 2 and 6 weeks. All questions answered. Discharge Plan Disposition Patient Disposition: HOME Condition: Good Discharge Details Reason For Visit: Labor Admit Date/Time: 03/20/22 21:51 Admit Provider: Dorys Cesar Attending Provider: Dorys Cesar Primary Care Provider: Mckayla Valera [facility] Course Hospital Course: Patient presented in early active labor, had an uncomplicated labor course. She received epidural for pain control. She went on to deliver by normal spontaneous vaginal delivery of viable female infant. She an uncomplicated p ostpartum course. Discharged home day #1. Female infant, Natalie. Home Meds and New Rx's Prescriptions: New ibuprofen [IBU] 600 mg tablet 600 mg PO Q8H PRNQty: 30 1RF Continued Plus 29 mg iron- 1 mg tablet 1 tab PO DAILY Qty: 90 5RF pyridoxine (vitamin B6) 25 mg tablet 25 mg PO DAILY Discontinued ondansetron HCl 8 mg tablet 8 mg PO Q8H PRN (Reason: nausea and vomiting) Qty: 14 1RF Discharge Instructions Stand Alone Forms: BC Instructions, BC Post Vaginal Deliver Activity:: Pelvic rest Equipment/Supplies:: No Equipment Needed Diet:: As Tolerated Discharge Orders Discharge Orders: Discharge Order (Routine); Ordered 03/22/22 Ordered By: Lynsey Rodriguez OB:DS Summary Contraception Discussed Contraception Discussed: Yes Contraceptive Plan: Undecided, [place] Gender-Baby A: Female weight: 6 lb 11.762 oz Status at Discharge Functional status at discharge: independent ambulation Overall status at discharge: patient is back to baseline Mental Status: mental status grossly normal Speech and Movement: speech and movement normal Mood: congruent mood Affect: normal affect Exam Physical Exam Vital signs: Temp Pulse Resp BP Pulse Ox 98.2 F 74 17 114/74 96 03/21/22 20:10 03/21/22 20:10 03/21/22 20:10 03/21/22 20:10 03/21/22 08:35 Narrative: See physical exam from progress note dated 03/22/2022 [facility] All Active Problems (Updated 03/22/22 @ 07:46 by Lynsey Rodriguez DO) Normal spontaneous vaginal delivery (Acute) Normal spontaneous vaginal delivery. 12/02. Female infant. Uncomplicated. [place] Uterine contractions (Acute) (Acute) Susceptible to varicella (non-immune), currently (Acute) Abnormal finding on screening of mother (Acute) with 38 completed weeks gestation (Acute) Medical History (Updated 03/22/22 @ 07:46 by Lynsey Rodriguez DO) Missed menses Surgical History [place] teeth extracted Family History (Updated 09/13/21 @ 10:29 by Yakelin Gonzales CNM) Paternal Grandfather Heart disease Mother Hx of cardiac arrhythmia Social History Smoking/Tobacco Use Status: Never Smoking risk assessment performed?: Yes Alcohol Intake: never Drug use: Never Substance use type: does not use Do you feel safe at home: Yes Do you feel safe in your relationship?: Yes History History 1 Para 0 Hx # Term Pregnancies 0 Multiple births 0 Hx # Pregnancies 0 Ectopic pregnancies 0 AB induced 0 Hx Number of Living Children 0 AB spontaneous 0 DS: Data Vitals/I&O Vitals and I&O: Vital Signs Temperature 98.2 F 03/21/22 20:10 Pulse 74 03/21/22 20:10 Pulse Rhythm Regular 03/21/22 20:10 Respiratory Rate 17 03/21/22 20:10 Respiratory Depth Normal 03/21/22 07:08 Blood Pressure 114/74 03/21/22 20:10 Blood Pressure Mean 87 03/21/22 20:10 Pulse Oximetry 96 03/21/22 08:35 Oxygen Delivery Method Room Air 03/20/22 22:24 Oxygen Flow Rate 0 03/20/22 22:24 Pain Level 4 03/22/22 01:29 Comment 03/21/22 09:42 Intake & Output 03/21/22 03/21/22 03/22/22 11:59 23:59 11:59 Intake Total 700 / 900 200 / 900 300 / 300 Output Total 850 / 2650 1800 / 2650 1400 / 1400 Balance -150 / -1750 -1600 / -1750 -1100 / -1100 Weight 190 lb Intake: IV 500 / 500 Oral 200 / 400 200 / 400 300 / 300 Output: Urine 850 / 2650 1800 / 2650 1400 / 1400 Other: Urine Color Pale Yellow Yellow Urine Appearance Clear Comment Rosado ramirez oplaced By previous staff. Pt has voided x1 since rosado removed during day
[2022-03-22] MEDS: Acetaminophen 325 MG TAB 650 MG PO (10:35)
[2022-03-22] MEDS: Docusate Sodium 100 MG CAP PO (10:36)
[2022-03-22 10:45] VITALS: BP 115/75; PULSE 70; RESP 14; TEMP 36.7; O2SAT 97
--- NOTE | 2022-03-22 12:28 | W.OBDELIVERY ---
Date of service: 03/22/22 Time of Service: 12:31 OB Labor/ Delivery Information Baby A Delivery Delivery Method: Spontaneaous Presentation: Cephalic Cephalic Position: Vertex Vertex Position: Right Occipital Anterior Cord Description-Baby A: 3 Vessels Amniotic Fluid: Clear Estimated Blood Loss: 100 Delivery Outcome: Liveborn Complications: none Note: Her parents intend to name her Natalie. Providers Doctor: Bridgette Bolton Nurse: Guillermina Sampson Nurse: Geraldo Eisenberg Labor/Delivery Information Number of Babies in Womb: 1 Steroids Given: None Reason Steroids Not Administered: N/A Group Beta Strep: Negative Antibiotics Administered: No Rubella Status: Immune Blood Type: O+ Varicella Immunity: Nonimmune Shoulder Dystocia: No Stages of Labor Onset of Labor Date: 03/20/22 Onset of Labor Time: 22:00 Complete Dilatation Date: 03/21/22 Complete Dilatation Time: 11:05 Labor - Stage 1 Duration: 13 hours and 5 minutes ROM Baby A: 03/21/22 ROM Baby A: 06:05 ROM Total Time- Baby A: [id number] Infant Delivery Date-Baby A: 03/21/22 Delivery Time-Baby A: 12:07 Labor Stage 2 Duration: 1 hours and 2 minutes Placenta Delivery Date-Baby A: 03/21/22 Placenta Delivery Time-Baby A: 12:27 Labor-Stage 3 Duration: 20 minutes Total Length of Labor-Baby A: 14 hours and 7 minutes Placenta Status: Delivered Baby A Infant Gender: Female Gestational Status: Term (39-41.6 wks) Gestational Age in Weeks/Days: 38 Weeks and 3 Days weight: 6 lb 11.762 oz Length-Baby A: 19.25 in Head Circumference-Baby A: 13 in Score-1 Minute Interval(Baby A) Heart Rate-1 minute: 100 BPM or Greater Respiratory Effort- 1 minute: Spontaneous/Strong Cry Muscle Tone-1 minute: Active Movement Reflex Response-1 minute: Prompt Response Color-1 minute: Pallor or Cyanosis Total Score-1 minute: 8 Score-5 Minute Interval(Baby A) Heart Rate- 5 minute: 100 BPM or Greater Respiratory Effort-5 minute: Spontaneous/Strong Cry Muscle Tone-5 minute: Active Movement Reflex Response-5 minute: Prompt Response Color-5 minute: Bluish Hands or Feet Total Score- 5 minute: 9
[2022-03-22] MEDS: Varicella Virus Vaccine (Live) 0.5 ML SC (15:14)
[2022-03-22 20:00] VITALS: BP 99/63; PULSE 69; RESP 18; TEMP 36.6
--- NOTE | 2022-03-23 03:13 | NUR.NOTE ---
Nursing Note: 03/23/22 [id number] mom rang has been cluster feeding mom is trying to pump not getting only drops. wetrelly wans formula . formula given infnt took it readily via pipette. mom is exhausted and feels like her baby is has drained her.
--- NOTE | 2022-03-23 03:15 | NUR.NOTE ---
0300 mom rang and was crying she has decided that she is too sore and wants to formula feed at this time. Nursing Note:
[2022-03-23 07:45] VITALS: BP 115/77; PULSE 67; RESP 16; TEMP 36.6
[2022-03-23] MEDS: Acetaminophen 325 MG TAB 650 MG PO (08:24)
[2022-03-23] MEDS: Ibuprofen 600 MG TAB PO (08:24)
[2022-03-23] MEDS: Docusate Sodium 100 MG CAP PO (08:24)
--- NOTE | 2022-03-23 10:28 | DSE_ITS ---
Date of service: 03/23/22 Time of Service: 10:29 DS: Diagnosis Discharge Diagnosis (1) Normal spontaneous vaginal delivery: Status: Acute Discharge Plan Disposition Patient Disposition: HOME Condition: Good Discharge Details Reason For Visit: Labor Admit Date/Time: 03/20/22 21:51 Admit Provider: Dorys Cesar Attending Provider: Dorys Cesar Primary Care Provider: Mckayla Valera [facility] Course Hospital Course: Patient presented in early active labor, had an uncomplicated labor course. She received epidural for pain control. She went on to deliver by normal spontaneous vaginal delivery of viable female infant. She an uncomplicated course. Discharged home day #1. Female , Natalie. Home Meds and New Rx's Prescriptions: New ibuprofen [IBU] 600 mg tablet 600 mg PO Q8H PRNQty: 30 1RF Continued Plus 29 mg iron- 1 mg tablet 1 tab PO DAILY Qty: 90 5RF pyridoxine (vitamin B6) 25 mg tablet 25 mg PO DAILY Discontinued ondansetron HCl 8 mg tablet 8 mg PO Q8H PRN (Reason: nausea and vomiting) Qty: 14 1RF Discharge Instructions Stand Alone Forms: BC Instructions, BC Post Vaginal Deliver Activity:: Pelvic rest Equipment/Supplies:: No Equipment Needed Diet:: As Tolerated Discharge Orders Discharge Orders: Discharge Order (Routine); Ordered 03/22/22 Ordered By: Lynsey Rodriguez OB:DS Summary Summary Vaginal Delivery Method: Spontaneaous Contraception Discussed Contraception Discussed: Yes, Gender-Baby A: Female weight: 6 lb 11.762 oz Status at Discharge Functional status at discharge: independent ambulation Overall status at discharge: patient is progressing back to baseline Mental Status: mental status grossly normal Speech and Movement: speech and movement normal Mood: congruent mood Affect: normal affect Exam Physical Exam Vital signs: Temp Pulse Resp BP Pulse Ox 97.9 F 67 16 115/77 97 03/23/22 07:45 03/23/22 07:45 03/23/22 07:45 03/23/22 07:45 03/22/22 10:45 Neck Exam Neck Exam: Normal Respiratory Exam Respiratory Exam: Normal Cardiovascular Exam Cardiovascular Exam: Normal Abdominal Exam Abdomen: Diastasis Fundal Exam Fundus: Below Umbilicus Rectal Exam Rectal Exam: Not Done Extremities Exam Extremity Exam: Normal Back/Spine/Pelvis Exam Back Exam: Normal Skin Exam Skin Exam: Normal Neurological Exam Neurological Exam: Normal Psychiatric Exam Psychiatric Exam: Normal Additional findings Additional findings: R nipple sl excoriated. No breast engorgment. No erythema PFSH All Active Problems (Updated 03/22/22 @ 07:46 by Lynsey Rodriguez DO) Normal spontaneous vaginal delivery (Acute) Normal spontaneous vaginal delivery. 12/02. Female infant. Uncomplicated. Natalie Uterine contractions (Acute) (Acute) Susceptible to varicella (non-immune), currently (Acute) Abnormal finding on screening of mother (Acute) with 38 completed weeks gestation (Acute) Medical History (Updated 03/22/22 @ 07:46 by Lynsey Rodriguez DO) Missed menses Surgical History [place] teeth extracted Family History (Updated 09/13/21 @ 10:29 by Yakelin Gonzales CNM) Paternal Grandfather Heart disease Mother Hx of cardiac arrhythmia Social History Smoking/Tobacco Use Status: Never Smoking risk assessment performed?: Yes Alcohol Intake: never Drug use: Never Substance use type: does not use Do you feel safe at home: Yes Do you feel safe in your relationship?: Yes History History 1 Para 1 Hx # Term Pregnancies 0 Multiple births 0 Hx # Pregnancies 0 Ectopic pregnancies 0 AB induced 0 Hx Number of Living Children 01 AB spontaneous 0 Past Pregnancies Del. Date GA/Weeks # Preg Succ Route Wgt Sex Labor Lgth Anesth esia Location Prov [facility] 03/21/22 38 No Yes vaginal 6 lb 11 oz Female [facility] Delivery Date: 03/21/22 Last Updated by: MD Natalie Goff. DS: Data Vitals/I&O Vitals and I&O: Vital Signs Temperature 97.9 F 03/23/22 07:45 Pulse 67 03/23/22 07:45 Pulse Rhythm Regular 03/23/22 07:45 Respiratory Rate 16 03/23/22 07:45 Respiratory Depth Normal 03/22/22 10:30 Blood Pressure 115/77 03/23/22 07:45 Blood Pressure Mean 89 03/23/22 07:45 Pulse Oximetry 97 03/22/22 10:45 Oxygen Delivery Method Room Air 03/20/22 22:24 Oxygen Flow Rate 0 03/20/22 22:24 Pain Level 3 03/23/22 08:24 Comment 03/21/22 09:42 Intake & Output 03/22/22 03/22/22 03/23/22 11:59 23:59 11:59 Intake Total 1300 / 1300 Output Total 1400 / 1400 Balance -100 / -100 Intake: IV 1000 / 1000 Oral 300 / 300 Output: Urine 1400 / 1400 Other: Urine Color Pale
[2022-03-23 12:25] VITALS: BP 111/54; PULSE 72; RESP 16; TEMP 36.4; O2SAT 97
== END 2022-03-23 15:12 | disposition home or self-care (01) | DRG 807 ==
LOC: OBS 22:07 → BCD 03-21 09:32
PROVIDERS: Admitting Provider Obstetrics & Gynecology; PCP Nurse Practitioner Family; Visit Provider Obstetrics & Gynecology
DX: O80 Encounter for full-term uncomplicated delivery (principal); Z37.0 Single live birth; Z3A.38 38 weeks gestation of pregnancy
CPT/HCPCS: 36415; 85027; 86850; 86900; 86901; 87635; 59025; J2270; J2405; J2590; J3490

== ENCOUNTER 2023-12-14 02:12 | Outpatient (CLI) | payer MEDICAID, SELFPAY ==
[2023-12-14 14:51] LABS: Panorama Kit Sent via Fed Ex
[2023-12-14 15:05] LABS: Abs Immature Grans 0.01 10^3/uL (0.0-0.06); Absolute Basophil Count 0.08 10^3/uL (0.0-0.2); Absolute Lymphocyte Count 2.36 10^3/uL (1.2-3.4); Absolute Monocyte Count 0.66 10^3/uL (0.1-0.8); Absolute Neutrophil Count 1.98 10^3/uL (1.2-6.7); Basophils % 1.5 %; Eosinophils % 1.9 %; HCT 36.7 % (36.0-46.0); HGB 12.6 g/dL (11.2-15.7); Immature Grans % 0.2 %; Lymphocytes % 45.5 %; MCH 28.1 pg (27.0-33.0); MCHC 34.3 % (32.0-36.0); MCV 82 fL (80-95); MPV 10.1 fL (8.0-11.0); Monocytes % 12.7 %; Neutrophils % 38.2 %; Platelet Count 246 10^3/uL (130-400); RBC 4.48 10^6/uL (3.93-5.22); RDW-SD 36.4 fL; WBC 5.19 10^3/uL (4.4-10.8)
[2023-12-16 09:14] LABS: HIV-1/2 Ag & Ab Screen Negative (Negative)
[2023-12-17 09:52] LABS: Hepatitis B Surface Ag Negative (Negative)
[2023-12-17 10:50] LABS: Hepatitis C Ab w Rflx HCV PCR Negative (Negative)
[2023-12-17 13:41] LABS: Rubella IgG Ab (UVM) Positive (See Note)
[2023-12-17 14:15] LABS: Varicella IgG Antibody Equivocal (See Note)
[2023-12-18 14:35] LABS: Syphilis IgG w/Reflex Nonreactive (Nonreactive)
== END 2023-12-14 02:13 | disposition home or self-care (01) ==
LOC: LBO 02:12
PROVIDERS: PCP Nurse Practitioner Family; Visit Provider Advanced Practice Midwife
DX: Z34.91 Encounter for supervision of normal pregnancy, unspecified, first trimester (principal)
CPT/HCPCS: 36415; 86787; 86803; 86850; 86900; 86901; 87340; 87389; 85025; 86762; 86780

== ENCOUNTER 2023-12-14 14:30 | Outpatient (REF) | payer MEDICAID, SELFPAY ==
--- NOTE | 2023-12-14 14:15 | PAPFT_PTH ---
PATIENT: Karen Mendoza LOC: [facility] U#:[id number] AGE/SX: 23/F ROOM: RE12/14/[address]: Yakelin Gonzales : 2000 BED: DIS: 12/14/2023 SPEC #: [id number] RECD: 12/14/23 17:28 STATUS: ENIO REQ #: [id number] DASHAWN: 12/14/23 14:[address]: Yakelin Gonzales DEPT: [facility] Cytology RECD BY: Nicolasa Early ENTERED: 12/14/23 17:28 SP TYPE: PAPFT OTHR DR: Mckayla Valera Tissues: 1 - CX/ENDOCX FOR PAP SMEARS Procedures: PAP THIN PREP/UVM Screening Comments: [id number] (CHLAMYDIA/GC)
[2023-12-17 12:08] LABS: Chlamydia Result Negative (Negative); GC Result Negative (Negative)
== END 2023-12-14 14:31 | disposition home or self-care (01) ==
LOC: LBN 14:30
PROVIDERS: PCP Nurse Practitioner Family; Visit Provider Advanced Practice Midwife
DX: Z34.91 Encounter for supervision of normal pregnancy, unspecified, first trimester (principal)
CPT/HCPCS: 87491; 87591; 88142; 87086

== ENCOUNTER 2024-02-08 00:35 | Outpatient (CLI) | payer MEDICAID, SELFPAY ==
--- NOTE | 2024-02-08 06:45 | DI.US_ITS ---
Exam(s) US OB 2-3 TRIMESTER EXAM: US OB 2-3 TRIMESTER CLINICAL HISTORY: ,z34.90. TECHNIQUE: Transabdominal obstetrical ultrasound performed. COMPARISON: US US OB SHANE WEIGHT from 03/08/2022 FINDINGS: Number of fetuses: 1 position: CEPHALIC heart rate: 151bpm Placental location: There is a grade 1 anterior placenta. The placental tip is 3.6 cm from the inter nal os. No evidence of previa. Amniotic fluid index: Amount of fluid is within normal limits. ANATOMICAL SURVEY: Within normal limits. BIOMETRIC DATA: BPD: 4.67cm, 20weeks 1day HC: 18.22cm, 20weeks 4days AC: 15.19cm, 20weeks 3days FL: 3.44cm, 20weeks 6days Cisterna magna: 5.3mm Cerebellum: 1.95cm Lateral ventricle: 0.6 cm EFW: 363.41g, 0.79lb, 45.6% Composite Age: 20weeks 4days DEANGELO: 06/23/2024 Heart Rate: 151bpm ANATOMICAL SURVEY: Four-chambered heart: Unremarkable. Note is made of a solitary echogenic right spot in the left vent ricle. It is 2 mm in size. This is a common finding. This is usually found in the left ventricle a nd is considered a normal variant. RVOT: Unremarkable. LVOT: Unremarkable. Left-sided stomach: Unremarkable. urinary bladder: Unremarkable. Bilateral kidneys: The AP diameter of the renal pelves is 4 mm on each side. Three-vessel cord: Unremarkable. Cord insertion: Unremarkable. Posterior fossa: Unremarkable. ventricles: Unremarkable. nose/lips: Unremarkable. Palate: Unremarkable. spine: Unremarkable. Two arms and two legs: Unremarkable. IMPRESSION: 1. Single live intrauterine gestation as above. 2. The AP diameter of the renal pelves is 4 mm on each side. Follow-up examination is recommended fo r re-evaluation of the kidneys. 3. Otherwise unremarkable anatomic survey. Unexpected findings DATA REPOSITORY:
== END 2024-02-08 00:55 ==
LOC: DI 00:43
PROVIDERS: PCP Nurse Practitioner Family; Visit Provider Advanced Practice Midwife
DX: Z34.92 Encounter for supervision of normal pregnancy, unspecified, second trimester (principal); Z3A.20 20 weeks gestation of pregnancy
CPT/HCPCS: 76805

== ENCOUNTER 2024-03-31 01:32 | Outpatient (CLI) | payer MEDICAID, SELFPAY ==
--- NOTE | 2024-03-31 07:30 | DI.US_ITS ---
Exam(s) US OB SHANE WEIGHT EXAM: US OB SHANE WEIGHT CLINICAL HISTORY: f/U hydronephrosis,[id number]. TECHNIQUE: Transabdominal obstetrical ultrasound performed. COMPARISON: US POCUS EXAM from 11/27/2023 US US OB 2-3 TRIMESTER from 02/08/2024 FINDINGS:: Number of fetuses: 1 position: Cephalic Placental location: Anterior no evidence of previa. BIOMETRIC DATA: BPD: 69 mm, 27+ 6 weeks HC: 260 mm, 28+ 2 weeks AC: 237 mm, 28+ 0 weeks FL: 54 mm, 28+ 4 weeks EFW: 1189, 45th percentile, Composite Age: 28+ 1 weeks DEANGELO: 22 June 2024 Heart Rate: 140 Amniotic fluid index: 15.9. Visually, amount of fluid is within normal limits. heart: Tiny echogenic focus again noted in the left ventricle. Kidneys: Slight pelviectasis noted, 3 millimeters on the right and 4 millimeters on the left. IMPRESSION: size and weight are within the expected range. Tiny echogenic focus again noted in the left ventricle. Minimal pelviectasis. DATA REPOSITORY:
== END 2024-03-31 01:52 ==
LOC: DI 01:32
PROVIDERS: PCP Nurse Practitioner Family; Visit Provider Obstetrics & Gynecology
DX: O35.EXX0 Maternal care for other (suspected) fetal abnormality and damage, fetal genitourinary anomalies, not applicable or unspecified (principal); Z3A.26 26 weeks gestation of pregnancy
CPT/HCPCS: 76816

== ENCOUNTER 2024-03-31 03:08 | Outpatient (CLI) | payer MEDICAID, SELFPAY ==
[2024-03-31 10:13] LABS: HGB 12.7 g/dL (11.2-15.7); MCH 29.3 pg (27.0-33.0); MCHC 32.6 % (32.0-36.0); MCV 90 fL (80-95); MPV 9.7 fL (8.0-11.0); Platelet Count 233 10^3/uL (130-400); RBC 4.33 10^6/uL (3.93-5.22); RDW 12.6 % (11.7-14.6); RDW-SD 41.7 fL; WBC 14.08 10^3/uL (4.4-10.8)
[2024-03-31 10:28] LABS: Glucose,1 Hr (Glucola) 111 mg/dL (80-140)
== END 2024-03-31 03:09 | disposition home or self-care (01) ==
LOC: LBO 03:08
PROVIDERS: PCP Nurse Practitioner Family; Visit Provider Obstetrics & Gynecology
DX: Z34.93 Encounter for supervision of normal pregnancy, unspecified, third trimester (principal)
CPT/HCPCS: 36415; 82950; 85027

== ENCOUNTER 2024-03-31 12:01 | Outpatient (CLI) | payer MEDICAID, SELFPAY ==
[2024-03-31 12:06] VITALS: BP 109/68; PULSE 103; TEMP 36.9
--- NOTE | 2024-03-31 20:04 | W.OBNST ---
Date of service: 03/31/24 Time of Service: 11:30 NST Evaluation Reason for NST Reasons for Nonstress Test: OTHER, SEE COMMENT Reason for NST Other: well being Gestational Age Gestational Age in Weeks and Days: 28 Weeks and 0Days Test and Monitor Explained Test/Monitor Explained: Test Explained, Monitor Explained and Patient Verbalized Understanding Vital Signs Blood Pressure: 109/68 Pulse: 103 Temperature: 98.4 F NST Information Date on Monitor: 03/31/24 Time on Monitor: 11:58 Date off Monitor: 03/31/24 NST Interventions: None NST Evaluation Patient States Movement: Present FHR Baseline: 145 Variability: Moderate 6-25 bpm Accelerations: 15x15 Decelerations: None NST Results: Reactive Note Ultrasound Done: N/A. NST Note Note: Pt was in radiology having her ultrasound when she felt nauseous so she went to the bathroom where she passed out. She does not remember falling but ended up on the floor and they heard a thump from outside the door. She says she woke up on her back and does not think she hit anything. She denies bruises or pain anywhere. She feels good movement. After she fell they finished her ultrasound including visualization of the placenta. She was monitored on NST for 2hrs with a reactive NST. NST Reviewed and Verified by: Dorys Cesar
[2024-03-31 20:07] VITALS: BP 109/68; PULSE 103; TEMP 36.9
== END 2024-03-31 14:10 | disposition other institution (70) ==
LOC: BCD 12:02 → OBS 12:05
PROVIDERS: PCP Nurse Practitioner Family; Visit Provider Obstetrics & Gynecology
DX: O26.893 Other specified pregnancy related conditions, third trimester (principal); R55 Syncope and collapse; Z3A.28 28 weeks gestation of pregnancy
CPT/HCPCS: 59025

== ENCOUNTER 2024-06-02 14:54 | Outpatient (REF) | payer MEDICAID, SELFPAY | END 2024-06-02 14:55 | disposition home or self-care (01) | LOC: LBN 14:54 | PROVIDERS: PCP Nurse Practitioner Family; Visit Provider Obstetrics & Gynecology Gynecology | DX: Z34.93 Encounter for supervision of normal pregnancy, unspecified, third trimester (principal); Z3A.37 37 weeks gestation of pregnancy | CPT/HCPCS: 87081 ==

== ENCOUNTER 2024-06-18 09:15 | Inpatient (IN) | payer MEDICAID, SELFPAY ==
[2024-06-18] VITALS (62 sets, daily range): BP systolic 78–158; BP diastolic 41–78; PULSE 0–107; RESP 16; TEMP 36.5–37.2; O2SAT 97–100; BMI 27.3
[2024-06-18 09:54] LABS: HGB 13.5 g/dL (11.2-15.7); MCH 29.4 pg (27.0-33.0); MCHC 32.9 % (32.0-36.0); MCV 89 fL (80-95); MPV 11.2 fL (8.0-11.0); Platelet Count 205 10^3/uL (130-400); RBC 4.59 10^6/uL (3.93-5.22); RDW 12.2 % (11.7-14.6); RDW-SD 39.8 fL; WBC 14.09 10^3/uL (4.4-10.8)
[2024-06-18] MEDS: miSOPROStol 25 MCG TAB PO ×2 (11:37→16:17)
[2024-06-18 12:09] LABS: ROM Plus Positive
--- NOTE | 2024-06-18 14:32 | HPE_ITS ---
Date of service: 06/18/24 Time of Service: 14:33 Assessment and Plan Assessment and plan (1) Encounter for induction of labor: Status: Acute Assessment and plan: Patient up score 2. Misoprostol cervical ripening 25mcg every 4 hours as needed. Pt desires epidural for labor analgesia when in active labor. Pt appears to have SROM at 0400 this am. VSS, Will consider prophylactic antibiotics if not delivered in 24hrs from time of SROM. OB-HPI Labor/Delivery History of Present Illness Reason for Visit: induction of labor Chief Complaint: Suspected Rupture of Membranes (she reports liquid on perineum this am. + loss of mucus plug. + ROMPlus on arrival to [facility]. ) , Associated Signs and Symptoms of Suspected ROM: fluid on perineum this am and loss of mucus plug. Positive ROMPlus result when on BC. ; Scheduled Induction of Labor (social reasons. ) Indication for Induction: Other. DEANGLEO Calculator Estimated Delivery Date Method Current WG Current Estimate 06/23/24 LMP (Certain) 39w 2d History of Present Expected Delivery Route/Plan - MDs FOB/ - Brock (second baby together) BG Varicella equivocal, offer pt vaccine Specific Issues/Plan 1. 4mm of dilation of bilateral kidneys @ 20w. 04/15/24 30w repeat US. R 3mm, L 4mm. No further imaging needed. EFW 45%tile, SHANE 15.9 5 Ps neg cfDNA low risk x5 female. Assessment: History Reviewed & Current Narrative: Patient is undergoing induction of labor for social reasons. Her will be traveling out of the area in approximately 3 days and patient is afraid that he will miss her delivery. Interestingly she reported leaking of fluid earlier this morning and had a positive result on her ROM plus test while on the center. Informed Consent Informed Consent: Induction of Labor and Risk,Benefits,Alternatives Discussed Review of Systems All systems reviewed & are unremarkable except as noted in HPI and below Constitutional Constitutional: Reports as per HPI and Reports difficulty sleeping (experiencing contractions overnight. Mild. ) Genitourinary Genitourinary: Reports vaginal discharge (leaking clear fluid at 0400 on 06/18/24. No gush, no bleeding) Musculoskeletal Musculoskeletal: Reports system reviewed and no additional complaints, except as documented Integumentary/Breasts Skin/Breast: Reports system reviewed and no additional complaints, except as documented Neurologic Neurologic: Reports system reviewed and no additional complaints, except as documented Psychiatric Psychiatric: Reports system reviewed and no additional complaints, except as documented PFSH All Active Problems (Updated 06/18/24 @ 18:22 by Bridgette Bolton MD) Encounter for induction of labor (Acute) hydronephrosis during , antepartum (Acute) Maternal varicella, non-immune (Acute) (Acute) Surgical History [place] teeth extracted Family History Paternal Grandfather Heart disease Mother Hx of cardiac arrhythmia Social History Smoking/Tobacco Use Status: Never Smoking risk assessment performed?: Yes Alcohol Intake: never Drug use: Never Substance use type: does not use Housing: apartment Do you feel safe at home: Yes Do you feel safe in your relationship?: Yes History History 2 Para 1 Hx # Term Pregnancies 1 Multiple births 0 Hx # Pregnancies 0 Ectopic pregnancies 0 AB induced 0 Hx Number of Living Children 1 AB spontaneous 0 Past Pregnancies Del. Date GA/Weeks # Preg Succ Route Wgt Sex Labor Lgth Anesth esia Location Prov [facility] 03/21/22 38 No Yes vaginal 6 lb 11 oz Female 8 hours regional aoc Delivery Date: 03/21/22 Last Updated by: JOVAN Kennedy prodromal labor Meds Allergies and Home Medications Allergies Allergy/AdvReac Type Severity Reaction Status Date / Time No Known Allergies Allergy Verified 06/16/24 10:53 Home Medications ?Medication ?Instructions ?Recorded ?Confirmed ?Type vitamins with calcium 1 tab PO DAILY #90 tabs 08/12/21 06/16/24 Rx no.72-iron 29 mg-folic acid 1 mg tablet ( Plus) Exam Physical Exam Vital signs: Temp Pulse Resp BP Pulse Ox 98.6 F 85 16 111/73 99 06/18/24 10:45 06/18/24 13:05 06/18/24 10:45 06/18/24 13:05 06/18/24 10:45 Vital Signs Reviewed: Yes Constitutional Constitutional: no acute distress Detailed Labor and Delivery Exam Dilation: 0 Effacement (%): 25 station: -2 Position: OA Cervix position: posterior Consistency: medium Ricardo Score: Cervical Points Exam 0 1 2 3 Dilation Closed 1-2cm 3-4 cm 5-6cm Effacement 0-30% 40-50% 60-70% 80% Consistency Firm Medium Soft Station -3 -2 -1,0 +1,+2 Position Posterior Mid Anterior RICARDO Score(Cervical Ripeness Score): 2 Amniotic Membrane Status: Ruptured (Pt report loss of fluid at 04:00 this morning. May have been mucus plug. Rom+ was positive at 13:00 today) Rupture Method: Spontaneous Amniotic Fluid: Clear Pooling: Negative ROM Plus: Positive Monitor Mode: External Results Results Group Beta Strep: Negative Blood Type: O+ Rubella Status: Immune Varicella Immunity: Equivocal Abnormal Lab Findings: Abnormal Labs 06/18/24 09:45 WBC 14.09 H MPV 11.2 H Risk Assessment Risk for Shoulder Dystocia Historical/Initial OB: NEGATIVE FOR: Pelvic Abnormality, Pre- BMI>30, Previous Shoulder Dystocia or Previous Macrosomia Risk for Pre-Eclampsia Yes, if one or more: NEGATIVE FOR: Hx Pre-E/Gest HTN, Chronic HTN, Multiple Gestation, Pre-gestational DM, Renal Disease, Systemic Lupus or APA Syndrome Yes, if 2 or more: NEGATIVE FOR: Nulliparity, Age>= 35 yrs, >10yr btwn pregnancies, BMI>30, ethinicty, Mother/Sister w/ Pre-E or Previous IUGR Risk for Post- Hemorrhage Initial: NEGATIVE FOR: Multiple Gestation, Previous PPH, Known Clotting Deficiency, Grand Multiparity or Anticoagulation Risks Reviewed Risks Reviewed Upon Admission: Yes
--- NOTE | 2024-06-18 18:31 | W.PM.OBNL1 ---
Date of service: 06/18/24 Time of Service: 18:36 Informed Consent Informed Consent: Induction of Labor and Risk,Benefits,Alternatives Discussed Pelvic Exam Dilation: 2 Effacement (%): 75 station: -1 Position: OA Cervix Position: posterior Consistency: soft Vaginal Exam Presentation: Cephalic Pooling: Negative Comments: Still no copious vaginal discharge. ROM plus positive earlier today Contractions Monitor Mode: External Contraction Frequency(min): q 5min Contraction Duration(sec): 60 Intensity: Mild/Moderate Fetus A Monitor: External (US) Heart Rate Baseline: 150 Presentation: Cephalic Variability: Moderate (6-25 BPM) Categories: Category I FHR Rhythm: Regular Characteristics: Normal Accelerations: 15 X 15 Decelerations: None Amniotic Membrane Status: Ruptured Rupture Method: Spontaneous Amount: unclear how much Date of Membrane Rupture: 06/18/24 Time of Membrane Rupture: 04:00 Objective Abnormal lab results 06/18/24 Range/Units 09:45 WBC 14.09 H (4.4-10.8) 10^3/uL MPV 11.2 H (8.0-11.0) fL Temp Pulse Resp BP Pulse Ox 98.8 F 75 16 124/74 99 06/18/24 18:08 06/18/24 18:08 06/18/24 10:45 06/18/24 18:08 06/18/24 10:45 Laboratory Results WBC 14.09 10^3/uL (4.4-10.8) H 06/18/24 09:45 RBC 4.59 10^6/uL (3.93-5.22) 06/18/24 09:45 Hgb 13.5 g/dL (11.2-15.7) 06/18/24 09:45 Hct 41.0 % (36.0-46.0) 06/18/24 09:45 MCV 89 fL (80-95) 06/18/24 09:45 MCH 29.4 pg (27.0-33.0) 06/18/24 09:45 MCHC 32.9 % (32.0-36.0) 06/18/24 09:45 RDW 12.2 % (11.7-14.6) 06/18/24 09:45 Plt Count 205 10^3/uL (130-400) 06/18/24 09:45 MPV 11.2 fL (8.0-11.0) H 06/18/24 09:45 Membranes Rupture Positive 06/18/24 11:45 Vital Signs Reviewed: Yes Objective Narrative Objective Narrative: remains comfortable. would like an epidural when in more active labor. Subjective Patient Reports: No new Complaints Interval history since last seen: Pt reports increasing discomfort - contractions closer together and more painful. Results Hemoglobin/Hematocrit: Hgb 13.5 g/dL (11.2-15.7) 06/18/24 09:45 Hct 41.0 % (36.0-46.0) 06/18/24 09:45 Abnormal Lab Findings: Abnormal Labs 06/18/24 09:45 WBC 14.09 H MPV 11.2 H
[2024-06-18] MEDS: Lactated Ringers 500 ML IV (22:23)
[2024-06-18] MEDS: FentaNYL/ROPIvacaine 2 mcg/ml and 0.1% 200 ML CADD Cassette EP (23:18)
[2024-06-18] MEDS: Lactated Ringers 1,000 ML 200 ML IV (23:23)
--- NOTE | 2024-06-18 23:23 | W.ANESNEU ---
Epidural/Spinal Catheter Date Performed: 06/18/24 Procedure Start: 22:49 Procedure Stop: 23:18 Requesting Provider: Bridgette Bolton Procedure Location: Obstetrics Reason Performed: Labor Epidural Standard Monitors Applied: Blood Pressure, SpO2, ETCO2 and See EMR for corresponding vital signs Patient Position: Sitting Sedation Given (Indicate Dose Given): No Sedation given Patient Mental Status: Awake Sterility: Hand Hygiene, Surgical Cap, Surgical Mask, Sterile Gloves, Sterile Drape/Sheet and Chlorhexidine Procedure Location: L2-L3 Interspace Epidural Needle: Tuohy 18 Gauge Needle Length: 3.5 Inch Needle Approach: Midline Epidural Procedure: Skin Prepped, Sterile Drape Placed, 1% Lidocaine to skin and subcutaneous tissue with 25G needle, Tuohy Needle placed, EDELMIRA to Saline Used, Epidural Catheter Placed, Negative Heme, Negative CSF Flow and Tuohy Needle Removed Catheter Placed?: Catheter Placed Test Dose (Indicate Dose Given): 3ml 1.5% Lidocaine with 1:200K Epinephrine Given and Negative Test Dose Loss of Resistance Depth (cm): 6 Catheter depth at skin (cm): 12 Dressing: Sorbaview Dressing Placed Epidural Provider Bolus (Indicate Dose Given): Total bolus dose given in 3-5 ml divided doses and Total Ropivacaine 0.1% with Fentanyl 2mcg/ml Given from pump. (ml) Dose:: 3mL Additives (Indicate Dose Given ): None Infusion Medication: Medication Infusion Began Medication Infusion: Ropivacaine 0.1% with Fentanyl 2mcg/ml Maintenance Infusion Rate (ml/hour): 10 PCEA Bolus Dose (ml): 5 Block Level: N/A Paresthesia: None Ultrasound: Not Used Number of Attempts (See previous attempts in note section): 2 Procedure Tolerated: No Complications Procedure Outcome: Successful Procedure Comment:: First attempt patient was having difficulty with positioning with patner. Procedure was paused and positioning chair was brought to bedside and patient was placed with success. Easy placement 2nd attempt. No complications. Performed By: Adriana Ortega
--- NOTE | 2024-06-18 23:26 | ANES.PREOP_ITS ---
General Info Date of Service Date Performed: 06/18/24 Height: 5 ft 3 in Weight: 69.853 kg Body Mass Index (BMI): 27.3 Meds Allergies and Home Medications Allergies Allergy/AdvReac Type Severity Reaction Status Date / Time No Known Allergies Allergy Verified 06/16/24 10:53 Home Medication ?Medication ?Instructions ?Recorded vitamins with calcium 1 tab PO DAILY #90 tabs 08/12/21 no.72-iron 29 mg-folic acid 1 mg tablet ( Plus) Current Visit Medications: Current Medications Generic Name Dose Route Start Last Admin Trade Name Freq PRN Reason Stop Dose Admin Fentanyl/Ropivacaine 200 ml 06/18/24 22:00 Fentanyl/Ropivacaine 2 Mcg/Ml And 0.1% 200 Ml Cadd Cassette EP DIRECTED [facility] Ringer's Solution 1,000 mls @ 200 mls/hr 06/18/24 09:30 IV INFUSION [facility] IV Miscellaneous Supplies 1 each 06/18/24 09:30 Iv Access IV DIRECTED [facility] Misoprostol 25 mcg 06/18/24 10:00 06/18/24 16:17 Misoprostol 25 Mcg Tab PO 25 mcg Q4H NATHANAEL Administration Sodium Chloride 0 ml 06/18/24 09:17 Normal Saline Flush 10 Ml Syr IVP PRN PRN Sodium Chloride 0 ml 06/18/24 20:00 Normal Saline Flush 10 Ml Syr IVP BID NATHANAEL Sodium Chloride 0 ml 06/18/24 09:17 Normal Saline 10 Ml Vial IJ DIRECTED PRN Terbutaline Sulfate 0.25 mg 06/18/24 09:17 Terbutaline 1 Mg/Ml Vial SC PRN PRN Zolpidem Tartrate 10 mg 06/18/24 21:00 Zolpidem 5 Mg Tab PO 06/19/24 06:00 2100 [facility] PFSH Active Problems Active Problems: Problem Status Onset Code Encounter for induction of labor Acute Z34.90 hydronephrosis during , antepartum Acute O35.EXX0 Maternal varicella, non-immune Acute O09.899, Z28.39 Acute Z34.90 Surgical History Surgical History [place] teeth extracted Tobacco Smoking/Tobacco Use Status: Never Alcohol Alcohol Intake: never Substance Use Substance use: Never Substance use type: does not use Prental History History 2 2 Para 1 Hx # Term Pregnancies 1 Multiple births 0 Hx # Pregnancies 0 Ectopic pregnancies 0 AB induced 0 Hx Number of Living Children 1 AB spontaneous 0 Past Pregnancies Del. Date GA/Weeks # Preg Succ Route Wgt Sex Labor Lgth Anesth [facility] 03/21[facility]22 38 No Yes vaginal 3033.399 g Female 8 hours regional aoc Delivery Date: 03/21/22 Last Updated by: JOVAN Kennedy prodromal labor Vital Signs and Lab Results Vital Signs Most Recent Vital Signs in EMR: Most Recent Vital Signs Temp Pulse Resp BP Pulse Ox 37.2 C 68 16 114/74 100 06/18/24 23:23 06/18/24 23:25 06/18/24 19:31 06/18/24 23:25 06/18/24 23:23 Lab Results 06/18/24 09:45 Blood Type / Crossmatch: 2 No Data to Display Complete Blood Count: 2 White Blood Count 14.09 10^3/uL (4.4-10.8) H 06/18/24 09:45 Red Blood Count 4.59 10^6/uL (3.93-5.22) 06/18/24 09:45 Hemoglobin 13.5 g/dL (11.2-15.7) 06/18/24 09:45 Hematocrit 41.0 % (36.0-46.0) 06/18/24 09:45 Platelet Count 205 10^3/uL (130-400) 06/18/24 09:45 Complete Metabolic Panel: 2 No Data to Display Liver Function Panel: 2 No Data to Display Coagulation Panel: 2 No Data to Display Cardiac Panel: 2 No Data to Display Arterial Blood Gas: 2 No Data to Display Venous Blood Gas: 2 No Data to Display Pancreas Panel: 2 No Data to Display Thyroid Panel: 2 No Data to Display Infectious Disease: 2 No Data to Display Blood Cultures: 2 No Data to Display Toxicology Panel: 2 No Data to Display Panel: 2 No Data to Display Anesthesia Assessment and Plan Anesthesia History Personal History: No History of Anesthesia Complications Family History: No Family History of Anesthesia Complications Exercise Tolerance Exercise Tolerance: Metabolic Equivalents>4 Pertinent Negatives Pertinent Negatives: No Symptoms of GERD, No Major Cardiovascular Symptoms or Complaints and No Major Pulmonary Symptoms or Complaints Cardiac & Pulmonary Exam Cardiac Exam: Normal S1/S2 Heart Sounds Pulmonary Exam: Clear Bilateral Breath Sounds Implantable Cardiac Device Does patient have a Pacemaker or an ICD?: No Airway Exam Known Difficult Airway: No Mallampati Class: 1 Mouth Opening: Normal (> 3cm) Thyromental Distance: Greater than 3 cm Neck Range of Motion: Full ROM Neck Circumference: Normal Teeth Condition: Normal Dentition ASA Classification ASA Score: ASA 2 Emergency Case?: No NPO Status NPO Status: Full Stomach Status Status: Confirmed Anesthesia Plan Resuscitation Status: Full Code Anesthesia Technique: Epidural Anesthesia Airway Planned: Natural Airway Monitors Used: Standard Monitors
[2024-06-19] VITALS (80 sets, daily range): BP systolic 106–192; BP diastolic 54–98; PULSE 0–187; RESP 16–18; TEMP 36.7–37.2; O2SAT 82–100
[2024-06-19] MEDS: Oxytocin/Normal Saline 30 UNIT/500 ML BAG 95 UNITS IV (01:15)
--- NOTE | 2024-06-19 07:26 | W.ANESPOSTOP ---
Postoperative Evaluation Date, Time and Location Date Performed: 06/19/24 Time Performed: 07:26 Patient Location: Obstetrics Vital Signs Most Recent Imported Vital Signs: Most Recent Vital Signs Temp Pulse Resp BP Pulse Ox 37.2 C 91 H 17 106/59 L 98 06/19/24 04:05 06/19/24 05:22 06/19/24 04:05 06/19/24 05:22 06/19/24 04:05 Pain Score Most Recent Pain Score: Most Recent Pain Score Pain Level 0 06/18/24 23:49 Assessment Mental Status: Awake (Alert & Oriented to Patient Baseline) Airway and Respiratory Function: Patent airway with normal (patient baseline) respiratory exam Cardiovascular Function: Hemodynamically Stable Hydration Status: Adequately Hydrated Nausea & Vomiting: No Nausea or Vomiting Pain: Pain is tolerable per patient Peripheral Nerve Block: Patient did not receive a nerve block Postoperative Comments:: Feels everything is back to normal. Back is a little sore, but has been up and walking without issues.
--- NOTE | 2024-06-19 08:25 | W.OBDELIVERY ---
Date of service: 06/19/24 Time of Service: 08:26 OB Labor/ Delivery Information Baby A Delivery Delivery Method: Spontaneaous Presentation: Cephalic Cephalic Position: N/A Vertex Position: Right Occipital Anterior Breech Position: N/A Cord Description-Baby A: 3 Vessels Amniotic Fluid: Clear Estimated Blood Loss: 50 Delivery Outcome: Liveborn Infant Complications: none Transferred: Remains with Mother Note: She will be named Kesha Providers Doctor: Bridgette Bolton Marketing Research Analyst: Adriana Ortega Nurse: Jenifer Rascon Nurse: Venus Judge Labor/Delivery Information Number of Babies in Womb: 1 Steroids Given: None Reason Steroids Not Administered: N/A Group Beta Strep: N/A Antibiotics Administered: No Rubella Status: Immune Blood Type: O+ Varicella Immunity: Equivocal Shoulder Dystocia: No Stages of Labor Onset of Labor Date: 06/18/24 Onset of Labor Time: 04:00 Complete Dilatation Date: 06/19/24 Complete Dilatation Time: 01:00 Labor - Stage 1 Duration: 21 hours and 0 minutes ROM Baby A: 06/18/24 ROM Baby A: 04:00 ROM Total Time- Baby A: [id number] Delivery Date-Baby A: 06/19/24 Delivery Time-Baby A: 01:07 Labor Stage 2 Duration: 7 minutes Placenta Delivery Date-Baby A: 06/19/24 Placenta Delivery Time-Baby A: 01:15 Labor-Stage 3 Duration: 8 minutes Total Length of Labor-Baby A: 21 hours and 7 minutes Placenta Status: Delivered Baby A Infant Gender: Female Gestational Status: Term (39-41.6 wks) Gestational Age in Weeks/Days: 39 Weeks and 3 Days weight: 7 lb 2.464 oz Length-Baby A: 19 in Head Circumference-Baby A: 13.25 in Score-1 Minute Interval(Baby A) Heart Rate-1 minute: 100 BPM or Greater Respiratory Effort- 1 minute: Spontaneous/Strong Cry Muscle Tone-1 minute: Active Movement Reflex Response-1 minute: Prompt Response Color-1 minute: Bluish Hands or Feet Total Score-1 minute: 9 Score-5 Minute Interval(Baby A) Heart Rate- 5 minute: 100 BPM or Greater Respiratory Effort-5 minute: Spontaneous/Strong Cry Muscle Tone-5 minute: Active Movement Reflex Response-5 minute: Prompt Response Color-5 minute: Bluish Hands or Feet Total Score- 5 minute: 9 Interventions Other (None)
[2024-06-19] MEDS: Acetaminophen 325 MG TAB 650 MG PO ×3 (10:35→18:35)
[2024-06-19] MEDS: Ibuprofen 600 MG TAB PO ×2 (10:35→18:35)
--- NOTE | 2024-06-20 07:53 | OBPPV_ITS ---
Date of service: 06/20/24 Time of Service: 07:53 Assessment and Plan Assessment and plan (1) Normal spontaneous vaginal delivery: Status: Inactive Assessment and plan: day #1 status postnormal spontaneous vaginal delivery after induction of labor, electively at term. Doing well. Discharge home today. Follow-up in the office in 2 and 6 weeks. All questions answered. Subjective Subjective Interval history: Patient seen and examined this morning. Overall doing well. Did desire early discharge last night, however this which is due to poor sleep from her family. Family sleeping well. She is breast-feeding without difficulty. She continues to have uterine contractions with breast-feeding. Prescription for ibuprofen will be sent to the pharmacy. Overall doing well. Discharge home today. Follow-up in 2 and 6 weeks. [place] baby status: Doing well [place] feeding status: Exclusively breast feeding Exam Physical Exam Vital signs: Temp Pulse Resp BP Pulse Ox 98.8 F 87 16 132/84 96 06/19/24 12:30 06/19/24 12:30 06/19/24 12:30 06/19/24 12:30 06/19/24 12:30 Vital Signs Reviewed: Yes Constitutional Constitutional: no acute distress Neck Exam Neck Exam: Normal Respiratory Exam Respiratory Exam: Normal Cardiovascular Exam Cardiovascular Exam: Normal Abdominal Exam Comments: Abdomen soft Fundal Exam Fundus: Below Umbilicus and Firm Extremities Exam Extremity Exam: Normal; negative Calf Tenderness Neurological Exam Neurological Exam: Normal Psychiatric Exam Psychiatric Exam: Normal Results Hemoglobin/Hematocrit: Hgb 13.5 g/dL (11.2-15.7) 06/18/24 09:45 Hct 41.0 % (36.0-46.0) 06/18/24 09:45 Abnormal Lab Findings: Abnormal Labs 06/18/24 09:45 WBC 14.09 H MPV 11.2 H
--- NOTE | 2024-06-20 07:56 | DSE_ITS ---
Date of service: 06/20/24 Time of Service: 07:56 DS: Diagnosis Discharge Diagnosis (1) Normal spontaneous vaginal delivery: Status: Inactive Asessment and Plan: day #1 status postnormal spontaneous vaginal delivery after labor induction at term. No issues or concerns. Discharge home. Follow-up in 2 and 6 weeks. Discharge Plan Disposition Patient Disposition: Home Condition: Good Discharge Details Reason For Visit: Term IOL Admit Date/Time: 06/18/24 09:15 Admit Provider: Bridgette Bolton Attending Provider: Bridgette Bolton Primary Care Provider: Mckayla Valera Hospital Course Hospital Course: Patient was admitted for labor induction. She progressed to completely dilated and after approximately 2 minutes of good maternal effort delivered a viable female infant. She an uncomplicated course and was discharged home day #1 status post vaginal ambulating, tolerating regular diet and oral pain medication. She and her daughter are doing well. She will be seen back in the office in 2 and 6 weeks. Home Meds and New Rx's Prescriptions: New ibuprofen 800 mg tablet 800 mg PO Q8H PRNQty: 30 1RF No Action Plus 29 mg iron- 1 mg tablet 1 tab PO DAILY Qty: 90 5RF Discharge Instructions Stand Alone Forms: BC Instructions, BC Post Vaginal Deliver Activity:: Pelvic rest Equipment/Supplies:: No Equipment Needed Diet:: As Tolerated Discharge Orders Discharge Orders: Discharge Order (Routine); Ordered 06/20/24 Ordered By: Lynsey Rodriguez OB:DS Summary Summary Vaginal Delivery Method: Spontaneaous Episiotomy Description: None Laceration Description: None Laceration Extension: N/A Contraception Discussed Contraception Discussed: Yes, Infant Gender-Baby A: Female weight: 7 lb 2.464 oz Status at Discharge Functional status at discharge: independent ambulation Overall status at discharge: patient is progressing back to baseline Mental Status: mental status grossly normal Speech and Movement: speech and movement normal Mood: congruent mood Affect: normal affect Quality:SDOH Health Related Social Needs: No Data to Display Exam Physical Exam Vital signs: Temp Pulse Resp BP Pulse Ox 98.8 F 87 16 132/84 96 06/19/24 12:30 06/19/24 12:30 06/19/24 12:30 06/19/24 12:30 06/19/24 12:30 Narrative: See physical exam from progress note dated 06/20/2024 [facility] All Active Problems (Updated 06/20/24 @ 07:55 by Lynsey Rodriguez DO) Encounter for induction of labor (Acute) hydronephrosis during , antepartum (Acute) Maternal varicella, non-immune (Acute) (Acute) Surgical History [place] teeth extracted Family History Paternal Grandfather Heart disease Mother Hx of cardiac arrhythmia Social History Smoking/Tobacco Use Status: Never Smoking risk assessment performed?: Yes Alcohol Intake: never Drug use: Never Substance use type: does not use Housing: apartment Do you feel safe at home: Yes Do you feel safe in your relationship?: Yes History History 2 Para 1 Hx # Term Pregnancies 1 Multiple births 0 Hx # Pregnancies 0 Ectopic pregnancies 0 AB induced 0 Hx Number of Living Children 1 AB spontaneous 0 Past Pregnancies Del. Date GA/Weeks # Preg Succ Route Wgt Sex Labor Lgth Anesth esia Location Prov [facility] 03/21/22 38 No Yes vaginal 6 lb 11 oz Female 8 hours regional aoc Delivery Date: 03/21/22 Last Updated by: JOVAN Kennedy prodromal labor DS: Data Vitals/I&O Vitals and I&O: Vital Signs Temperature 98.8 F 06/19/24 12:30 Temperature Source Oral 06/19/24 12:30 Pulse 87 06/19/24 12:30 Pulse Rhythm Regular 06/19/24 20:17 Respiratory Rate 16 06/19/24 12:30 Respiratory Depth Normal 06/19/24 20:17 Blood Pressure 132/84 06/19/24 12:30 Blood Pressure Mean 100 06/19/24 12:30 Pulse Oximetry 96 06/19/24 12:30 Oxygen Delivery Method Room Air 06/18/24 10:45 Oxygen Flow Rate 0 06/18/24 10:45 Pain Level 4 06/19/24 18:35 Comment Patient arm is bent. Retaken. See next result 06/19/24 01:58 Intake & Output 06/19/24 06/19/24 06/20/24 11:59 23:59 11:59 Intake Total 500 / 500 Output Total 2700 / 2700 Balance -2199 / -2199 Intake: IV 500 / 500 Output: Urine 2700 / 2700 Other: Urine Color Straw Straw Urine Appearance Clear Urine Odor None
[2024-06-20 08:28] VITALS: BP 110/77; PULSE 77; RESP 18; TEMP 36.8; O2SAT 97
[2024-06-20] MEDS: Ibuprofen 600 MG TAB PO (08:59)
[2024-06-20] MEDS: Acetaminophen 325 MG TAB 650 MG PO (08:59)
== END 2024-06-20 09:20 | disposition home or self-care (01) | DRG 807 ==
PROVIDERS: Admitting Provider Obstetrics & Gynecology Gynecology; PCP Nurse Practitioner Family; Visit Provider Obstetrics & Gynecology Gynecology
DX: O42.02 Full-term premature rupture of membranes, onset of labor within 24 hours of rupture (principal); Z37.0 Single live birth; Z3A.39 39 weeks gestation of pregnancy; Z28.39 Other underimmunization status
CPT/HCPCS: 36415; 84112; 85027; 86850; 86900; 86901; 59025; 86870; 86880; 86905; J3490